=== PATIENT | female | born 1950 | race Caucasian/White ===

== ENCOUNTER 2020-04-28 12:42 | Outpatient (REF) | payer MEDICARE, SELFPAY ==
--- NOTE | 2020-04-28 12:47 | MM_ITS ---
EXAMINATION: BONE DENSITOMETRY CLINICAL INDICATION: Estrogen deficiency. COMPARISON: Previous BD dated 11/07/2016 and baseline BD dated 09/22/2014. TECHNIQUE: Using a [employer] DXA System (software version: 13.1) manufactured by [employer], dual-energy x-ray absorptiometry was performed of the lumbar spine and left hip. The images are of good technical quality. Summary results are attached. FINDINGS: AP SPINE L1-L2 (excluding L3 and L4): The data of L1-L4 has been changed to exclude the L3 and L4 vertebral bodies, because degenerative changes at these levels may cause overestimation of lumbar spine density. Current: BMD 1.070 g/cm2, Z-score 1.0, T-score -0.8, normal, 6.2% increase from previous, 11.0% increase from baseline (<5% change is not significant). Prior: BMD 1.008 g/cm2. Baseline: BMD 0.964 g/cm2. LEFT FEMUR, NECK: Current: BMD 0.753 g/cm2, Z-score -0.2, T-score -2.0, osteopenia. Prior: BMD 0.757 g/cm2. Baseline: BMD 0.797 g/cm2. LEFT FEMUR, TOTAL: Current: BMD 0.886 g/cm2, Z-score 0.6, T-score -1.0, normal, 2.7% decrease from previous, 4.8% decrease from baseline (<5% change is not significant). Prior: BMD 0.911 g/cm2. Baseline: BMD 0.931 g/cm2. IDENTIFIED RISK FACTORS: Menopause. HISTORY OF FRACTURE: None listed. MEDICATIONS: Calcium, vitamin D. IMPRESSION: 1. DIAGNOSIS: Osteopenia based on the lowest T-score value of -2.0 in the femoral neck applying World Health Organization criteria. 2. 10-YEAR FRACTURE RISK PREDICTION, FRAX: Major osteoporotic fracture (clinical spine, forearm, hip or shoulder) 12.6%. Hip fracture 2.7%. 3. Treatment Recommendations: NOF guidelines recommend consideration for treatment in postmenopausal women and men age 50 and older presenting with the following: -A hip or vertebral (clinical or morphometric) fracture. -T-score less than or equal to -2.5 at the femoral neck or spine after appropriate evaluation to exclude secondary causes. -Low bone mass at the hip or spine and a 10-year fracture probability by FRAX of greater than or equal to 3% for hip fracture or greater than or equal to 20% for major osteoporotic fracture based on the [place] adapted WHO algorithm. 4. Other Recommendations: All treatment decisions require clinical judgment and consideration of individual patient factors, including patient preferences, comorbidities, previous drug use, risk factors not captured in the FRAX model (e.g. frailty, falls, vitamin D deficiency, increased bone turnover, interval significant decline in bone density) and possible under or overestimation of fracture risk by FRAX. Additional medical evaluation for secondary cause of low bone mineral density may be appropriate. FUTURE SCAN RECOMMENDATION: People with diagnosed cases of osteoporosis or at high risk for fracture should have regular bone mineral density tests. For patients eligible for Medicare, routine testing is allowed once every 2 years. The testing frequency can be increased to one year for patients who have rapidly progressing disease, those who are receiving or discontinuing medical therapy to restore bone mass, or have additional risk factors.
== END 2020-04-28 12:43 | disposition home or self-care (01) ==
LOC: HO.MAMMO 12:42
PROVIDERS: PCP Nurse Practitioner Family; Visit Provider Nurse Practitioner Family
DX: E28.39 Other primary ovarian failure (principal)
CPT/HCPCS: 77080

== ENCOUNTER 2020-10-06 11:48 | Outpatient (REF) | payer MEDICARE, SELFPAY ==
--- NOTE | ~2020-10-06 | MM_ITS ---
EXAMINATION: MM SCREENING DIGITAL BREAST TOMOSYNTHESIS, BILATERAL CLINICAL INFORMATION: Screening. Asymptomatic. The lifetime risk of breast cancer based on the Tyrer-Cuzick Model is 2.9%. COMPARISON: Mammography: January 15, 2019 and studies dating back to April 22, 2012 TECHNIQUE: Digital breast tomosynthesis is performed in both the craniocaudal and mediolateral oblique views along with computer-aided detection (CAD). Synthesized 2D images are generated from the tomosynthesis. Additional right breast exaggerated craniocaudal view performed. FINDINGS: There are scattered areas of fibroglandular density (ACR BI-RADS breast composition Category b). There are no significant masses, abnormal calcifications, or other abnormalities. MM/MM tomosynthesis screening BI IMPRESSION: There are no significant changes from prior study. ASSESSMENT: BI-RADS 1: Negative RECOMMENDATION: Routine annual mammography screening. This patient's information was entered into a reminder system with a target due date for their next mammogram.
== END 2020-10-06 11:49 | disposition home or self-care (01) ==
LOC: HO.MAMMO 11:48
PROVIDERS: PCP Nurse Practitioner Family; Visit Provider Nurse Practitioner Family
DX: Z12.31 Encounter for screening mammogram for malignant neoplasm of breast (principal)
CPT/HCPCS: 77063; 77067

== ENCOUNTER 2021-10-12 11:13 | Outpatient (REF) | payer MEDICARE, SELFPAY ==
--- NOTE | ~2021-10-12 | MM_ITS ---
EXAMINATION: MM SCREENING DIGITAL BREAST TOMOSYNTHESIS, BILATERAL CLINICAL INFORMATION: Screening. Asymptomatic. The lifetime risk of breast cancer based on the Tyrer-Cuzick Model is 3%. COMPARISON: Mammography: 10/06/2020, 01/15/2019, 06/17/2018, 12/12/2017, 11/27/2017 TECHNIQUE: Digital breast tomosynthesis is performed in both the craniocaudal and mediolateral oblique views along with computer-aided detection (CAD). Synthesized 2D images are generated from the tomosynthesis. FINDINGS: There are scattered areas of fibroglandular density (ACR BI-RADS breast composition Category b). Parenchymal pattern is similar to prior studies and there is no interval mass or developing density or architectural abnormality. There are scattered benign punctate round and some rim calcifications again seen. The axilla and skin contours are unremarkable. No significant changes. MM/MM tomosynthesis screening BI IMPRESSION: No mammographic evidence of malignancy. ASSESSMENT: BI-RADS 2: Benign RECOMMENDATION: Routine annual mammography screening. This patient's information was entered into a reminder system with a target due date for their next mammogram.
== END 2021-10-12 11:14 | disposition home or self-care (01) ==
LOC: HO.MAMMO 11:13
PROVIDERS: Visit Provider Nurse Practitioner Family
DX: Z12.31 Encounter for screening mammogram for malignant neoplasm of breast (principal)
CPT/HCPCS: 77063; 77067

== ENCOUNTER → 2022-09-25 09:38 | Outpatient (REF) | payer MEDICARE, SELFPAY ==
--- NOTE | 2022-09-25 09:41 | CA_ITS ---
Transthoracic Echocardiogram Patient (Last, First, Middle): Ngoc Rocha B Gender: Female Date of : 1950 Age: 72 Procedure Date: 09/25/2022 Procedure Type: Transthoracic Echocardiogram Location: OP Height: 154.94 cm Weight: 56.7 kg BSA: 1.55 m2 Heart Rate: 65 bpm BP: 118 / 60 mmHg Outpatient Interviewing Clerk: BEE Referring MD: Maddy Lin NP [employer] Operator: Emil Quigley MD Symptoms: ABNORMAL EKG Study Quality: Adequate ECG Rhythm: Sinus Conclusions: - 1. [id number]-[id number] LV systolic dysfunction with LVEF of 40-45% with suggestion regional wall motion abnormality suggestive underlying coronary artery disease with impaired relaxation filling pattern 2. Severely dilated left atrium 3. Mild aortic regurgitation 4. Moderate mitral calcification with [id number]-moctblum mitral regurgitation 5. Normal RV systolic pressure 6. No gross pericardial effusion Findings Left Ventricle Normal left ventricular cavity size. There is normal left ventricular wall thickness. The left ventricular systolic function is mild to moderately decreased. The visually estimated ejection fraction is between 40-45%. Spectral Doppler is indicative of an impaired relaxation filling pattern. E/E prime ratio is between 8 and 15 consistent with indeterminate filling pressures. Peak GLS is -14.3%, which is reduced. Wall Motion Rest Echo Findings The inferior wall, the apical septum, and mid inferoseptal segments are hypokinetic. The apex segment is akinetic. All other scored wall segments showed normal motion. Right Ventricle Normal right ventricular cavity size and systolic function. Atria The left atrium is severely dilated. There is no evidence of interatrial shunt. The right atrium is likely dilated. Aortic Valve There is mild calcification of the aortic valve. There is mild aortic valve stenosis. There is no aortic valve regurgitation. Mitral Valve There is mild anterior and moderate posterior mitral leaflet thickening. There is moderate mitral annular calcification. There is mild to moderate mitral valve regurgitation. There is no mitral valve stenosis. Pulmonic Valve The pulmonic valve was not well visualized. Tricuspid Valve Likely normal tricuspid valve structure and function. There is trace tricuspid valve regurgitation. The right ventricular systolic pressure is normal. The right ventricular systolic pressure is 18 mmHg. Normal right atrial pressure. There is no evidence of pulmonary hypertension. Great Vessels All visible segments of the aorta are normal in size. The pulmonary artery was not well visualized. Venous The inferior vena cava is normal in size and collapses greater than 50% with inspiration. Pericardium/Pleural There is no evidence of pericardial effusion. Prior Study Comparison Changes noted compared to prior study dated: 10/31/2016. LV systolic function is marginally improved Measurements 2D Linear Measurements IVSd: 0.83 0.6-0.9/0.6-1.0 cm LVIDd: 5.12 3.9-5.3/4.2-5.9 cm LVIDd Index: 3.30 2.4-3.2/2.2-3.1 cm/m2 LVIDs: 3.64 2.0-3.6 cm LVPWd: 1.01 0.7-1.1 cm LA Diam: 3.90 2.7-3.8/3.0-4.0 cm LAIDs Index: 2.52 1.5-2.3 cm/m2 LV Mass: 210.90 67-162/88-224 g LV Mass Index: 136.07 43-95/49-115 g/m2 LVOT Diam: 2.10 3.0+(-)1.3 cm 2D Systolic Function EF 4C: 42.10 >55% EF 2C: 46.20 >55% EF BiP: 44.00 >55% Mitral Valve MV Pk E: 0.66 MV PK A: 0.84 MV Decel Time: 271.00 E/A: 0.80 E'Lateral: 5.22 E'Medial: 4.79 E/E' Med: 13.80 E/E' Lat: 12.60 PHT: 79.00 MVA PHT: 2.78 Decel [place]: 2.43 Aortic Valve AoV Pk Pedrito: 1.00 AoV Mn Pedrito: 0.64 AoV VTI: 0.23 AoV Pk Grad: 4.00 Aov Mn Grad: 2.00 JENNIFER Cont.VTI: 2.29 LVOT LVOT Pk Pedrito: 0.59 LVOT Mn Pedrito: 0.40 LVOT VTI: 0.15 LVOT Pk Grad: 1.00 LVOT Mn Grad: 1.00 LVOT Diam: 2.10 LVOT Area: 3.46 Diastolic Function MV Pk E: 0.66 MV Pk A: 0.84 E/A: 0.80 E'Medial: 4.79 E/E' Med: 13.80 E' Laterial: 5.22 E/E' Lat: 12.60 Right Ventricle TAPSE (mm): 21.10 TVS' Pedrito: 10.90 Tricuspid Valve TR Pk Pedrito: 1.95 TR Pk Grad: 15.00 RA Press: 3.00 RVSP: 18.00 Great Vessels Aorta Sinus of Valsalva: 3.20 2.0-3.5 cm Ao Asc: 3.00 2.1-3.4 cm Pulmonary Valve PV Pk Pedrito: 0.73 Peak PV Grad: 2.00 Updated in Other Vendor System with Status of Final Emil Quigley MD electronically signed on 09/25/2022 11:50:21 AM with status of Final
== END ==
LOC: HO.CARD 09:38
PROVIDERS: PCP Nurse Practitioner Family; Visit Provider Nurse Practitioner Family
DX: R94.31 Abnormal electrocardiogram [ECG] [EKG] (principal)
CPT/HCPCS: 93306; 93356

== ENCOUNTER 2022-11-07 12:12 | Outpatient (REF) | payer MEDICARE, SELFPAY ==
--- NOTE | ~2022-11-07 | MM_ITS ---
EXAMINATION: MM SCREENING DIGITAL BREAST TOMOSYNTHESIS, BILATERAL CLINICAL INFORMATION: Screening. Asymptomatic. The lifetime risk of breast cancer based on the Tyrer-Cuzick Model is 2%. COMPARISON: Mammography: 10/12/2021, 10/06/2020, 01/15/2019 TECHNIQUE: Digital breast tomosynthesis is performed in both the craniocaudal and mediolateral oblique views along with computer-aided detection (CAD). Synthesized 2D images are generated from the tomosynthesis. FINDINGS: There are scattered areas of fibroglandular density (ACR BI-RADS breast composition Category b). There are no significant masses, abnormal calcifications, or other abnormalities. Parenchymal pattern is similar to prior studies. There is no developing density or architectural abnormality. The axilla and skin contours are unremarkable. No significant changes. MM/MM tomosynthesis screening BI IMPRESSION: No mammographic evidence of malignancy. ASSESSMENT: BI-RADS 1: Negative RECOMMENDATION: Routine annual mammography screening. This patient's information was entered into a reminder system with a target due date for their next mammogram.
== END 2022-11-07 12:13 | disposition home or self-care (01) ==
LOC: HO.MAMMO 12:12
PROVIDERS: PCP Nurse Practitioner Family; Visit Provider Nurse Practitioner Family
DX: Z12.31 Encounter for screening mammogram for malignant neoplasm of breast (principal)
CPT/HCPCS: 77063; 77067

== ENCOUNTER → 2022-12-14 12:35 | Outpatient (BNVA) | payer MEDICARE, SELFPAY | PROVIDERS: PCP Nurse Practitioner Family; Referring Provider Nurse Practitioner Family; Visit Provider Internal Medicine Cardiovascular Disease | DX: I25.5 Ischemic cardiomyopathy (principal); I49.9 Cardiac arrhythmia, unspecified | CPT/HCPCS: 93005; 99202 ==

== ENCOUNTER 2023-01-05 08:04 | Outpatient (REF) | payer MEDICARE, SELFPAY ==
[2023-01-05 09:24] LABS: Hematocrit 40.1 % (37.0-47.0); Hemoglobin 13.9 g/dl (12.0-16.0); Mean Corpuscular HGB Conc 34.7 g/dl (31.0-35.0); Mean Corpuscular Hemoglobin 32.6 pg (27.0-33.0); Mean Corpuscular Volume 93.9 fL (80.0-98.0); Mean Platelet Volume 11.1 fL (9.4-12.3); Platelet Count 211 X10*3/uL (160-400); Red Blood Count 4.27 X10*6/uL (4.20-5.50); Red Cell Distribution Width 12.5 % (11.0-16.0); White Blood Count 6.1 X10*3/uL (4.8-10.8)
[2023-01-05 09:28] LABS: INTERNATIONAL NORM RATIO 0.9 (0.9-1.1); Prothrombin Time 10.6 SEC (10.0-13.1)
[2023-01-05 09:50] LABS: Anion Gap 14 (12-20); Blood Urea Nitrogen 17 mg/dL (9-16); Calcium 9.9 mg/dL (8.4-10.2); Chloride 105 mmol/L (96-108); Estimated Glomerular Filt Rate > 60; Glucose Random 108 mg/dL (60-115); Potassium 4.3 mmol/L (3.3-5.1); Sodium 140 mmol/L (135-145)
[2023-01-05 09:53] LABS: Carbon Dioxide 25 mmol/L (22-29)
== END 2023-01-05 08:05 | disposition home or self-care (01) ==
LOC: HO.LAB 08:04
PROVIDERS: PCP Nurse Practitioner Family; Visit Provider Internal Medicine Cardiovascular Disease
DX: I25.5 Ischemic cardiomyopathy (principal)
CPT/HCPCS: 36415; 80048; 85027; 85610

== ENCOUNTER → 2023-01-25 23:59 | Outpatient (BNV) | payer MEDICARE, SELFPAY | PROVIDERS: PCP Nurse Practitioner Family; Visit Provider Internal Medicine Cardiovascular Disease | DX: I42.9 Cardiomyopathy, unspecified (principal); I50.20 Unspecified systolic (congestive) heart failure | CPT/HCPCS: 93458; 99152 ==

== ENCOUNTER 2023-02-08 14:35 | Outpatient (AMB) | payer MEDICARE, SELFPAY ==
--- NOTE | 2023-02-08 14:57 | MHC.OFFVIS ---
Intake Vital Signs 02/08/23 14:58 Height 5 ft 1 in Weight 125 lb 10.616 oz BMI 23.7 BP 130/70 Blood Pressure Location Lt brachial Position Sitting Pulse 66 Pulse Source Pulse Oximeter Intake Visit Reasons: 2 wk s/p cath Intake Note: 2 week/ s/p cath Allergies No Known Allergies Allergy (Verified 02/08/23 15:01) Medication List - Last Reconciled 02/08/23 by Sara Valencia NP-C alprazolam 0 mg PO aspirin (Ecotrin Low Strength) 81 mg PO DAILY atorvastatin 40 mg PO DAILY lisinopril 10 mg PO DAILY mecobalamin (vitamin B12) 1,000 mcg PO DAILY metoprolol tartrate 50 mg PO BID sertraline 25 mg PO DAILY HPI 2 wk s/p cath HPI Details Ngoc is a 72-year-old female with past medical history cardiomyopathy and ventricular arrhythmias who had been under our care however not seen between 01/2017 and 12/08/2022 for unclear reason. More recently she had an echocardiogram which still shows cardiomyopathy which led to cardiac catheterization showing normal coronary arteries. Today she reports she has been feeling well with no chest discomfort at rest or with activity, no shortness of breath. She does get episodes were is very petite. No presyncope, syncope, falls. No PND, orthopnea or edema. She reports compliance with her medications. She has a letter of approval for the cardiac MRI which was previously ordered. [facility] [place] Medical History (Updated 02/08/23 @ 17:34 by Sara Valencia, IVAN-C) Cardiomyopathy Surgical History (Updated 02/08/23 @ 17:34 by Sara Vlaencia NP-C) S/P cardiac catheterization Social History Alcohol intake: current Alcohol intake frequency: holidays/special occasions only Patient Tobacco Use Status: Former Tobacco user Quit Date: 30 years Review of Systems Const All systems reviewed & are unremarkable except as noted in HPI and below ENT Reports dizziness Card Denies chest pain, Denies chest pain at rest, Denies chest pain with activity, Denies rapid heart rate, Denies pedal edema, Denies edema, Denies leg edema, Denies lightheadedness, Denies palpitations, Denies dyspnea, Denies dyspnea on exertion and Denies orthopnea Resp Denies cough, Denies dyspnea and Denies dyspnea on exertion GI Denies hematochezia and Denies change in stool character Musc Denies abnormal gait, Reports limited range of motion, Reports muscle cramps, Denies muscle weakness, Denies numbness, Denies radiating pain into limb, Denies stiffness and Denies tingling Neuro Denies abnormal gait, Reports dizziness, Denies numbness and Denies tingling Endo Denies palpitations Physical Exam Vital Signs: Last Vital Signs Pulse 66 02/08/23 14:58 BP 130/70 02/08/23 14:58 BMI result Body Mass Index 23.7 Const General: cooperative, healthy appearing, comfortable and no acute distress Orientation/consciousness: patient oriented x3 Neck Neck: Yes normal visual inspection Resp Effort & Inspection: normal respiratory effort Auscultation: clear to auscultation bilaterally, no crackles, no rales, no rhonchi and no wheezes Cardio Jugular venous distension: no JVD Rate: regular rate Rhythm: regular rhythm Heart sounds: S1 normal heart sound present, S2 normal heart sound present, no murmurs and no rubs Neuro General: patient oriented x3 Extrem Other: Right radial catheterization site well healed, easily palpable radial pulse and hand assessment normal General: Yes normal to inspection Psych Appearance: grossly normal Mental Status: mental status grossly normal Speech and movement: Normal speech and movement present Assessment & Plan Assessment & Plan (1) Nonischemic cardiomyopathy: Code(s): I42.8 - Other cardiomyopathies Plan: History of cardiomyopathy. Previously seen in 2017 for LV systolic dysfunction and ventricular arrhythmias. There was concern at that time for infiltrative cardiomyopathy, sarcoidosis. She had a cardiac MRI which was borderline abnormal and started on metoprolol. According to notes her ventricular arrhythmias subsided and LV systolic function had normalized. She then was not seen in our office again until 12/2022. She had had an echo 09/25/2022 showing EF 40-45%, impaired relaxation, inferior wall, apical septum and mid inferior septal segments are hypokinetic, apex akinetic. She underwent cardiac catheterization on 01/25/2023 showing normal coronary arteries. She has nonischemic cardiomyopathy. A cardiac MRI has previously been ordered and she has a letter of approval from her insurance company. She will be calling [facility] to schedule this procedure. All the above reviewed with her and she states understanding. She will continue on metoprolol at 50 mg b.i.d., lisinopril. Blood pressure well controlled currently. Cardiology follow-up, 3 months, sooner if needed (2) S/P cardiac catheterization: Comment: 01/25/2023, left main, left circumflex, RCA all normal, lad minimal luminal irregularities Code(s): Z98.890 - Other specified postprocedural states (3) Ventricular arrhythmia: Code(s): I49.9 - Cardiac arrhythmia, unspecified Coding Level of Care Code Est Pt Level 4 (86786) Diagnoses Nonischemic cardiomyopathy I42.8 S/P cardiac catheterization Z98.890 Ventricular arrhythmia I49.9 Time Spent (min) 28 Comment Chart review, documentation, interview, assessment
[2023-02-08 14:58] VITALS: BP 130/70; PULSE 66; BMI 23.7
== END 2023-02-08 15:44 | disposition home or self-care (01) ==
PROVIDERS: PCP Nurse Practitioner Family; Referring Provider Nurse Practitioner Family; Visit Provider Nurse Practitioner Family
DX: I42.8 Other cardiomyopathies (principal); Z98.890 Other specified postprocedural states; I49.9 Cardiac arrhythmia, unspecified
CPT/HCPCS: 99214

== ENCOUNTER → 2023-02-08 14:35 | Outpatient (BNVA) | payer MEDICARE, SELFPAY | PROVIDERS: PCP Nurse Practitioner Family; Referring Provider Nurse Practitioner Family; Visit Provider Nurse Practitioner Family | DX: I42.8 Other cardiomyopathies (principal); I49.9 Cardiac arrhythmia, unspecified; Z98.890 Other specified postprocedural states | CPT/HCPCS: 99212 ==

== ENCOUNTER → 2023-04-04 10:42 | Outpatient (REF) | payer MEDICARE, SELFPAY ==
--- NOTE | 2023-04-04 10:49 | HM_ITS ---
Conclusion: 1. Patient was monitored for total period of 2 days 2. Baseline was normal sinus with average heart of 69 beats per minute 3. No significant pauses noted 4. Occasional PACs and PVCs noted 5. No patient reported events MTDD
== END ==
LOC: HO.CARD 10:42
PROVIDERS: PCP Nurse Practitioner Family; Visit Provider Nurse Practitioner Family
DX: I49.3 Ventricular premature depolarization (principal)
CPT/HCPCS: 93225

== ENCOUNTER → 2023-04-04 10:49 | Outpatient (BNV) | payer MEDICARE, SELFPAY | PROVIDERS: PCP Nurse Practitioner Family; Visit Provider Internal Medicine Cardiovascular Disease | DX: I49.1 Atrial premature depolarization (principal) | CPT/HCPCS: 93227 ==

== ENCOUNTER 2023-06-27 08:38 | Outpatient (REF) | payer MEDICARE, SELFPAY ==
[2023-06-27 09:43] LABS: Anion Gap 11 (12-20); Blood Urea Nitrogen 13 mg/dL (9-16); Calcium 9.6 mg/dL (8.4-10.2); Carbon Dioxide 28 mmol/L (22-29); Chloride 107 mmol/L (96-108); Estimated Glomerular Filt Rate > 60; Glucose Random 111 mg/dL (60-115); Potassium 4.2 mmol/L (3.3-5.1); Sodium 142 mmol/L (135-145)
== END 2023-06-27 08:39 | disposition home or self-care (01) ==
LOC: HO.LAB 08:38
PROVIDERS: PCP Nurse Practitioner Family; Visit Provider Internal Medicine Cardiovascular Disease
DX: I42.8 Other cardiomyopathies (principal); I25.5 Ischemic cardiomyopathy
CPT/HCPCS: 36415; 80048

== ENCOUNTER 2023-07-23 14:25 | Outpatient (AMB) | payer MEDICARE, SELFPAY ==
--- NOTE | 2023-07-23 14:33 | A.OFFVIS_ITS ---
Intake Vital Signs 07/23/23 14:34 Height 5 ft 1 in Weight 134 lb 7.712 oz BMI 25.4 BP 120/70 Blood Pressure Location Lt brachial Position Sitting Pulse 72 Intake Visit Reasons: Follow up after cardiac MRI Intake Note: Follow-up post cardiac MRI feeling good Allergies No Known Allergies Allergy (Verified 02/08/23 15:01) Medication List - Last Reconciled 07/23/23 by Emil Quigley MD alprazolam 0 mg PO aspirin (Ecotrin Low Strength) 81 mg PO DAILY atorvastatin 40 mg PO DAILY lisinopril 10 mg PO DAILY mecobalamin (vitamin B12) 1,000 mcg PO DAILY metoprolol tartrate 50 mg PO BID sertraline 25 mg PO DAILY HPI HPI Comments History of Present Illness Details Ngoc comes for follow-up. She recently underwent cardiac MRI which shows LVEF of 46% with dilated left atrium. There were no infiltrative or infarcted segment seen on the MRI. There was mild mitral regurgitation noted. There is also mild aortic regurgitation noted. Overall patient is doing well. She has no limitations to activity level. She however does not exercise on a regular basis. She denies any prolonged palpitations irregular heartbeat. Denies any heart failure symptoms. Denies any chest pains. [facility] Medical History (Updated 07/23/23 @ 14:56 by Emil Quigley MD) Cardiomyopathy Surgical History (Updated 07/23/23 @ 14:56 by Emil Quigley MD) S/P cardiac catheterization Social History Alcohol intake: current Alcohol intake frequency: holidays/special occasions only Patient Tobacco Use Status: Former Tobacco user Quit Date: 30 years Review of Systems Const Denies chills, Denies fatigue, Denies fever(s), Denies frequent falls, Denies weakness, Denies weight gain and Denies weight loss ENT Denies dizziness Card Denies chest pain, Denies leg edema, Denies lightheadedness, Denies palpitations, Denies dyspnea, Denies dyspnea on exertion, Denies orthopnea and Denies other (loss of consciousness) Resp Denies cough, Denies dyspnea and Denies dyspnea on exertion GI Denies hematochezia and Denies change in stool character Musc Denies abnormal gait, Denies muscle weakness, Denies numbness, Denies radiating pain into limb and Denies tingling Neuro Denies abnormal gait, Denies dizziness, Denies frequent falls, Denies numbness, Denies tingling and Denies weakness Endo Denies fatigue and Denies palpitations Physical Exam Vital Signs: Last Vital Signs Pulse 72 07/23/23 14:34 BP 120/70 07/23/23 14:34 BMI result Body Mass Index 25.4 Const General: cooperative, healthy appearing, comfortable and no acute distress Orientation/consciousness: patient oriented x3 Neck Neck: Yes normal visual inspection Resp Effort & Inspection: normal respiratory effort Auscultation: clear to auscultation bilaterally, no crackles, no rales, no rhonchi and no wheezes Cardio Jugular venous distension: no JVD Rate: regular rate Rhythm: regular rhythm Heart sounds: S1 normal heart sound present, S2 normal heart sound present, no murmurs and no rubs Neuro General: patient oriented x3 Extrem Other: Right radial catheterization site well healed, easily palpable radial pulse and hand assessment normal General: Yes normal to inspection Psych Appearance: grossly normal Mental Status: mental status grossly normal Speech and movement: Normal speech and movement present Assessment & Plan Assessment & Plan (1) Nonischemic cardiomyopathy: Code(s): I42.8 - Other cardiomyopathies Plan: Nonischemic cardiomyopathy in this elderly woman without any signs or symptoms of congestive heart failure. She is doing well currently. Encouraged to increase activity level. Advised to continue current neurohormonal modulation with lisinopril and metoprolol. We discussed about signs and symptoms of heart failure and advised to call me with any new symptoms. Importance of medical therapy was discussed. She understands agrees. Will follow up in the clinic in 1 year's time after an echocardiogram. Thank you for allowing me to partake in the care Coding Level of Care Code Est Pt Level 4 (92016) Diagnoses Nonischemic cardiomyopathy I42.8
[2023-07-23 14:34] VITALS: BP 120/70; PULSE 72; BMI 25.4
== END 2023-07-23 14:57 | disposition home or self-care (01) ==
PROVIDERS: PCP Nurse Practitioner Family; Visit Provider Internal Medicine Cardiovascular Disease
DX: I42.8 Other cardiomyopathies (principal)
CPT/HCPCS: 99214

== ENCOUNTER → 2023-07-23 14:25 | Outpatient (BNVA) | payer MEDICARE, SELFPAY | PROVIDERS: PCP Nurse Practitioner Family; Visit Provider Internal Medicine Cardiovascular Disease | DX: I42.8 Other cardiomyopathies (principal) | CPT/HCPCS: 99212 ==

== ENCOUNTER 2023-09-04 08:45 | Outpatient (REF) | payer MEDICARE, SELFPAY ==
[2023-09-04 10:53] LABS: Anion Gap 13 (12-20); Blood Urea Nitrogen 14 mg/dL (9-16); Carbon Dioxide 25 mmol/L (22-29); Chloride 104 mmol/L (96-108); Estimated Glomerular Filt Rate > 60; Glucose Random 121 mg/dL (60-115); Potassium 4.4 mmol/L (3.3-5.1); Sodium 138 mmol/L (135-145)
== END 2023-09-04 08:46 | disposition home or self-care (01) ==
LOC: HO.LAB 08:45
PROVIDERS: PCP Nurse Practitioner Family; Visit Provider Nurse Practitioner Family
DX: I10 Essential (primary) hypertension (principal)
CPT/HCPCS: 36415; 80048

== ENCOUNTER 2023-09-24 08:19 | Outpatient (REF) | payer MEDICARE, SELFPAY ==
--- NOTE | ~2023-09-24 | CT_ITS ---
EXAMINATION: CT ABDOMEN AND PELVIS WITH CONTRAST CLINICAL INFORMATION: Right lower quadrant pain COMPARISON: None available. TECHNIQUE: Multidetector volumetric images were obtained from the superior aspect of the liver through the pubic symphysis following administration 85 mL of Omnipaque 350 intravenous contrast. Sagittal and coronal reformatted images were obtained on the technologist's workstation. Oral contrast: Yes This CT examination was performed using dose optimization techniques as appropriate, variously including the following: *Automated exposure control *Adjustment of mA and/or kV according to patient size (this includes techniques or standardized protocols for targeted exams where dose is matched to indication/reason for exam; i.e. extremities or head) *Use of iterative reconstruction technique DLP: 287 mGy-cm FINDINGS: Visualized lung bases demonstrate mild dependent atelectasis. The liver is normal in size. The gallbladder is normal in appearance. The pancreas, spleen and adrenal glands are unremarkable. Small anterior splenule. Symmetrically enhancing kidneys. There is no hydronephrosis of either kidney. Normal distention of the stomach. Normal caliber loops of small and large bowel. Mild colonic diverticulosis without CT evidence to suggest active diverticulitis. Normal appendix. Normal caliber abdominal aorta demonstrating moderate atherosclerotic disease. No retroperitoneal lymphadenopathy. Small fat-containing umbilical hernia. The bladder is normal in appearance. Unremarkable CT appearance of the uterus. No gross free pelvic fluid. No inguinal lymphadenopathy. Diffuse osteopenia. Mild to moderate diffuse degenerative changes of the spine. CT/CT abdomen pelvis w IV con IMPRESSION: Mild colonic diverticulosis without CT evidence to suggest active diverticulitis. Fleischner guidelines were followed.
[2023-09-24] MEDS: iohexoL 350 MG/ML 100 ML INFUS..BTL 85 ML IV (11:00)
[2023-09-24] MEDS: Barium Sulfate Oral (Vanilla) 450 ML ORAL.SUSP PO ×2 (11:01)
== END 2023-09-24 08:20 | disposition home or self-care (01) ==
LOC: HO.CT 08:19
PROVIDERS: PCP Nurse Practitioner Family; Visit Provider Nurse Practitioner Family
DX: R10.31 Right lower quadrant pain (principal); G89.29 Other chronic pain
CPT/HCPCS: 74177; Q9967

== ENCOUNTER 2023-12-28 10:11 | Outpatient (REF) | payer MEDICARE, SELFPAY | END 2023-12-28 10:12 | disposition home or self-care (01) | LOC: HO.MAMMO 10:11 | PROVIDERS: PCP Nurse Practitioner Family; Visit Provider Nurse Practitioner Family | DX: Z12.31 Encounter for screening mammogram for malignant neoplasm of breast (principal) | CPT/HCPCS: 77063; 77067 ==

== ENCOUNTER → 2023-12-28 10:30 | Outpatient (BNV) | payer MEDICARE, SELFPAY | PROVIDERS: PCP Nurse Practitioner Family; Visit Provider Radiology Diagnostic Radiology | DX: Z12.31 Encounter for screening mammogram for malignant neoplasm of breast (principal) | CPT/HCPCS: 77063; 77067 ==

== ENCOUNTER 2024-07-22 10:40 | Outpatient (AMB) | payer MEDICARE, SELFPAY ==
[2024-07-22 10:55] VITALS: BP 120/80; PULSE 71; BMI 25.0
--- NOTE | 2024-07-22 10:55 | A.OFFVIS_ITS ---
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 She has been doing very well over the last year. Denies any symptoms exertional chest pain or shortness of breath. Recently traveled to [facility] and said she walked a lot and had no issues with that. Denies any prolonged palpitation irregular heartbeat. No lightheadedness, syncope. No orthopnea, PND, leg edema. Takes all her medications. [facility] Medical History (Updated 07/23/23 @ 14:56 by Emil Quigley MD) Cardiomyopathy Surgical History (Updated 07/23/23 @ 14:56 by Emil Quigley MD) S/P cardiac catheterization Social History Alcohol intake: current Alcohol intake frequency: holidays/special occasions only Patient Tobacco Use Status: Former Tobacco user Review of Systems Const Denies chills, Denies fatigue, Denies fever(s), Denies frequent falls, Denies weakness, Denies weight gain and Denies weight loss ENT Denies dizziness Card Denies chest pain, Denies leg edema, Denies lightheadedness, Denies palpitations, Denies dyspnea, Denies dyspnea on exertion, Denies orthopnea and Denies other (loss of consciousness) Resp Denies cough, Denies dyspnea and Denies dyspnea on exertion GI Denies hematochezia and Denies change in stool character Musc Denies abnormal gait, Denies muscle weakness, Denies numbness, Denies radiating pain into limb and Denies tingling Neuro Denies abnormal gait, Denies dizziness, Denies frequent falls, Denies numbness, Denies tingling and Denies weakness Endo Denies fatigue and Denies palpitations Physical Exam Vital Signs: Last Vital Signs Pulse 71 07/22/24 10:55 BP 120/80 07/22/24 10:55 BMI result Body Mass Index 25.0 Const General: cooperative, healthy appearing, comfortable and no acute distress Orientation/consciousness: patient oriented x3 Neck Neck: Yes normal visual inspection Resp Effort & Inspection: normal respiratory effort Auscultation: clear to auscultation bilaterally, no crackles, no rales, no rhonchi and no wheezes Cardio Jugular venous distension: no JVD Rate: regular rate Rhythm: regular rhythm Heart sounds: S1 normal heart sound present, S2 normal heart sound present, no murmurs and no rubs Neuro General: patient oriented x3 Extrem Other: Right radial catheterization site well healed, easily palpable radial pulse and hand assessment normal General: Yes normal to inspection Psych Appearance: grossly normal Mental Status: mental status grossly normal Speech and movement: Normal speech and movement present Office Procedures EKG Details: EKG shows normal sinus rhythm with nonspecific anterior and inferior T-wave changes 30025-Xrzmvmchortklegrr, Complete Assessment & Plan Assessment & Plan (1) Nonischemic cardiomyopathy: Code(s): I42.8 - Other cardiomyopathies Category: Medical Plan: Nonischemic cardiomyopathy without any new symptoms. No signs or symptoms of heart failure. They were discussed. Continue aggressive neurohormonal modulation with metoprolol lisinopril. Advised to follow-up echocardiogram near future. If her LV systolic function remains reduce will switch her neurohormonal modulation from lisinopril to Entresto therapy. Otherwise continue current therapy. Low-salt diet was discussed advised to call me with any new symptoms. (2) Ventricular arrhythmia: Code(s): I49.9 - Cardiac arrhythmia, unspecified Category: Medical Plan: Frequent PVCs in the past which had improved with metoprolol therapy. Advised to continue metoprolol therapy. Advised to avoid stimulants. Stress mitigation strategies was discussed. Will follow up with Holter monitor in near future. No change in therapy. No antiarrhythmic drug therapy required. Will follow up in the clinic in 1 year's time, sooner p.r.n.. Thank you for allowing me to partake in her care Orders: Orders CA echo transthoracic complete Today I42.8 - Other cardiomyopathies ECG 3 day holter monitor Today I49.9 - Cardiac arrhythmia, unspecified Coding Level of Care Code Est Pt Level 4 (88296) Complex EM visit Add On G2211 Diagnoses Nonischemic cardiomyopathy I42.8 Ventricular arrhythmia I49.9 CPT Codes EKG - CPT: 30766-Cfvxeacmozpckycsw, Complete ([id number])
== END 2024-07-22 11:17 | disposition home or self-care (01) ==
PROVIDERS: PCP Nurse Practitioner Family; Visit Provider Internal Medicine Cardiovascular Disease
DX: I42.8 Other cardiomyopathies (principal); I49.9 Cardiac arrhythmia, unspecified
CPT/HCPCS: 93010; 99214; G2211

== ENCOUNTER → 2024-07-22 10:40 | Outpatient (BNVA) | payer MEDICARE, SELFPAY | PROVIDERS: PCP Nurse Practitioner Family; Visit Provider Internal Medicine Cardiovascular Disease | DX: I42.8 Other cardiomyopathies (principal); I49.9 Cardiac arrhythmia, unspecified; R94.31 Abnormal electrocardiogram [ECG] [EKG] | CPT/HCPCS: 93005; 99212 ==

== ENCOUNTER → 2024-08-05 10:43 | Outpatient (REF) | payer MEDICARE, SELFPAY ==
--- NOTE | 2024-08-05 10:47 | HM_ITS ---
* Total monitoring time 3 days. * Underlying rhythm is sinus with an average rate of 77/Min. * Rare supraventricular ectopy. * Ventricular ectopy noted with a burden of 1.8%. * No significant pauses or high-grade AV blocks. * No patient markers or diary events. MTDD
--- NOTE | 2024-08-05 10:47 | CA_ITS ---
Transthoracic Echocardiogram Patient (Last, First, Middle): Ngoc Rocha B Gender: Female Date of : 1950 Age: 74 Procedure Date: 08/05/2024 Procedure Type: Transthoracic Echocardiogram Location: OP Height: 154.94 cm Weight: 58.97 kg BSA: 1.57 m2 Heart Rate: bpm BP: 116 / 56 mmHg Cone Operator: Referring MD: Emil Quigley MD Symptoms: I42.8 - Other cardiomyopathies Study Quality: Fair ECG Rhythm: Sinus Conclusions: - The left ventricular systolic function is mildly decreased. The calculated ejection fraction is 43% by biplane method. - The mid inferior segment is akinetic. The basal inferolateral segment is hypokinetic. - The left atrium is severely dilated. - There is moderate posterior mitral annular calcification. There is mild posterior mitral leaflet prolapse. There is moderate mitral valve regurgitation. Findings Left Ventricle Normal left ventricular cavity size. There is normal left ventricular wall thickness. The left ventricular systolic function is mildly decreased. The calculated ejection fraction is 43% by biplane method. There is evidence of regional wall motion abnormalities. Diastolic function is normal for age. Wall Motion Rest Echo Findings The basal inferolateral segment is hypokinetic. The mid inferior segment is akinetic. Right Ventricle Normal right ventricular cavity size and systolic function. Atria The left atrium is severely dilated. The right atrium is normal in size. Aortic Valve There is a normal trileaflet aortic valve. There is no aortic valve stenosis. There is mild aortic valve regurgitation. Mitral Valve There is moderate posterior mitral annular calcification. There is mild posterior mitral leaflet prolapse. There is moderate mitral valve regurgitation. There is no mitral valve stenosis. Pulmonic Valve There is mild pulmonic valve regurgitation. Tricuspid Valve There is mild tricuspid valve regurgitation. There is no evidence of pulmonary hypertension. Great Vessels The asc aorta is normal in size. Venous The inferior vena cava is normal in size and collapses greater than 50% with inspiration. Pericardium/Pleural There is no evidence of pericardial effusion. Prior Study Comparison No significant change compared to prior study dated: 09/25/2022. Measurements 2D Linear Measurements IVSd: 1.04 0.6-0.9/0.6-1.0 cm LVIDd: 5.39 3.9-5.3/4.2-5.9 cm LVIDd Index: 3.43 2.4-3.2/2.2-3.1 cm/m2 LVIDs: 4.13 2.0-3.6 cm LVPWd: 1.01 0.7-1.1 cm Ao Root: 3.20 2.1-3.5 cm LA Diam: 4.50 2.7-3.8/3.0-4.0 cm LAIDs Index: 2.87 1.5-2.3 cm/m2 LV Mass: 265.45 67-162/88-224 g LV Mass Index: 169.08 43-95/49-115 g/m2 LVOT Diam: 2.40 3.0+(-)1.3 cm 2D Systolic Function EF 4C: 41.80 >55% EF 2C: 48.90 >55% EF BiP: 42.90 >55% Mitral Valve MV Pk E: 1.00 MV PK A: 0.86 MV Decel Time: 174.00 E/A: 1.20 E'Lateral: 6.31 E'Medial: 5.66 E/E' Med: 17.60 E/E' Lat: 15.80 PHT: 51.00 MVA PHT: 4.31 Decel Bladen: 5.75 MR Vol - PW Dopp: 47.67 MR VTI: 2.27 MR ERO: 21.00 MR Alias Pedrito: 0.32 MR RAD: 0.80 Aortic Valve AoV Pk Pedrito: 0.97 AoV Mn Pedrito: 0.66 AoV VTI: 0.27 AoV Pk Grad: 4.00 Aov Mn Grad: 2.00 LVOT LVOT Diam: 2.40 LVOT Area: 4.52 Diastolic Function MV Pk E: 1.00 MV Pk A: 0.86 E/A: 1.20 E'Medial: 5.66 E/E' Med: 17.60 E' Laterial: 6.31 E/E' Lat: 15.80 Right Ventricle TAPSE (mm): 24.00 TVS' Pedrito: 10.00 Tricuspid Valve TR Pk Pedrito: 1.62 TR Pk Grad: 10.00 RA Press: 3.00 RVSP: 13.00 Great Vessels Aorta Ao Root-2D: 3.20 2.0-3.7 cm Ao Asc: 3.00 2.1-3.4 cm Pulmonary Valve PV Pk Pedrito: 0.73 Peak PV Grad: 2.00 Updated in Other Vendor System with Status of Final Marty Newman MD electronically signed on 08/07/2024 11:19:54 AM with status of Final
--- OUTSIDE RECORDS SUMMARY | 2024-08-05 11:50 | XMS_ITS | Patient Health Record ---
Author Organization Total [facility] Address [address] [place] [address] Care Team Providers Care Data Collection Interviewer Name Role Phone KACY KHAN N.P. Primary Care Provider Unavaila ble Reason For Referral No Information Medications Medication SIG (Take, Route, Frequency, Duration) Notes Start Date End Date Status Atorvastatin Calcium 40 MG 1 tablet Oral ly Once a day Active Lisinopril 20 MG 1 tablet Orally Once a day Active Calcium 500 MG 1 tablet with meals Orally Twice a day Active Vitamin D 1000 UNIT 1 tablet Orally Once a day Active Vagifem 10 MCG 1 tablet Vaginal TWI CE WEEKLY for 90 days 11/16/2014 Active Plan Of Treatment Pending Test Test Name Order Date Vitamin D, 25-Hydroxy 11/20/2014 MAMMOGRAM, SCREENING 11/16/2014 Insurance Providers Payer Name Payer Address Payer Phone Subscriber Number Group Number Insured Name Patient Relationship to Insured Coverage Start Date Coverage End Date [employer]AGE [facility] [address] [place] [address] [id number] ESTEPHANIE KEANE Self - patient is the insured Medical (General) History Medical History History ICD Code HYPERTENSION HYPERLIPIDEMIA Hospitalization History Reason Date(Month/Year) CHILD
== END ==
LOC: HO.CARD 10:43
PROVIDERS: Visit Provider Internal Medicine Cardiovascular Disease
DX: I49.9 Cardiac arrhythmia, unspecified (principal); I42.8 Other cardiomyopathies; I47.10 Supraventricular tachycardia, unspecified
CPT/HCPCS: 93242; 93306

== ENCOUNTER 2024-09-01 07:49 | Outpatient (REF) | payer MEDICARE, SELFPAY ==
[2024-09-01 10:27] LABS: MANUAL DIFF FLAG NO
[2024-09-01 10:47] LABS: Basophils Absolute Auto 0.1 X10*3/uL (0.0-0.2); Eosinophils Absolute Auto 0.1 X10*3/uL (0.0-0.4); Eosinophils Percent Auto 1.9 % (0-4); Hemoglobin 13.7 g/dl (12.0-16.0); Imm Gran Abs Auto 0.03 X10*3/uL (0.00-0.03); Imm Gran Pct Auto 0.4 % (0.0-0.4); Lymphocytes Absolute Auto 2.4 X10*3/uL (1.2-4.9); Lymphocytes Percent Auto 34.3 % (20-40); Mean Corpuscular HGB Conc 33.4 g/dl (31.0-35.0); Mean Corpuscular Hemoglobin 32.2 pg (27.0-33.0); Mean Corpuscular Volume 96.5 fL (80.0-98.0); Monocytes Absolute Auto 0.5 X10*3/uL (0.1-1.2); Monocytes Percent Auto 7.5 % (2-11); Neutrophils Absolute Auto 3.9 x10*3/uL (2.0-8.3); Neutrophils Percent Auto 54.9 % (45-73); Platelet Count 187 X10*3/uL (160-400); Red Blood Count 4.25 X10*6/uL (4.20-5.50); Red Cell Distribution Width 12.7 % (11.0-16.0)
[2024-09-01 11:06] LABS: Estimated Average Glucose 108 mg/dL; Hemoglobin A1C 125.8946 umol/L; Hemoglobin A1c % 5.4 % (<6.0); Total Hemoglobin (HGBA1C) 3547.5639 umol/L
[2024-09-01 11:31] LABS: Alanine Aminotransferase 20 U/L (0-31); Albumin Level 4.2 g/dL (3.5-5.0); Alkaline Phosphatase 57 U/L (39-117); Anion Gap 14 (12-20); Aspartate Amino Transferase 21 U/L (5-31); Bilirubin Total 0.7 mg/dL (0.0-1.0); Blood Urea Nitrogen 12 mg/dL (9-16); Calcium 9.6 mg/dL (8.4-10.2); Carbon Dioxide 26 mmol/L (22-29); Chloride 106 mmol/L (96-108); Cholesterol 216 mg/dL (<200); Estimated Glomerular Filt Rate > 60; Glucose Fasting 120 mg/dL (60-99); HDL Cholesterol 57 mg/dL (>40); LDL Cholesterol Calculated 118 mg/dL (<100); Potassium 4.6 mmol/L (3.3-5.1); Sodium 141 mmol/L (135-145); Total Protein 7.4 g/dL (6.5-8.0); Triglycerides 207 mg/dL (<150); Vitamin D 25-OH Total 33.7 ng/mL (>30)
== END 2024-09-01 07:50 | disposition home or self-care (01) ==
LOC: HO.HMGCLDS 07:49
PROVIDERS: PCP Internal Medicine; Visit Provider Internal Medicine
DX: I42.8 Other cardiomyopathies (principal); E78.5 Hyperlipidemia, unspecified; R73.9 Hyperglycemia, unspecified; E55.9 Vitamin D deficiency, unspecified; Z78.0 Asymptomatic menopausal state; Z79.899 Other long term (current) drug therapy
CPT/HCPCS: 36415; 80053; 80061; 82306; 83036; 85025; 96127; 99202

== ENCOUNTER 2024-09-01 07:49 | Outpatient (AMB) | payer MEDICARE, SELFPAY ==
[2024-09-01 08:00] VITALS: BP 134/76; PULSE 73; RESP 18; TEMP 36.7; O2SAT 97; BMI 25.7
--- NOTE | 2024-09-01 08:00 | A.OFFPC_ITS ---
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 Allergies No Known Allergies Allergy (Verified 09/01/24 08:04) Medication List - Last Reconciled 09/01/24 by Kasandra Hylton MD aspirin (Ecotrin Low Strength) 81 mg PO DAILY atorvastatin 40 mg PO DAILY biotin 2,500 mcg PO DAILY cholecalciferol (vitamin D3) 25 mcg PO DAILY lisinopril 10 mg PO DAILY mecobalamin (vitamin B12) 1,000 mcg PO DAILY metoprolol tartrate 50 mg PO BID sertraline 25 mg PO DAILY Tobacco use date assessed: 09/01/24 Fall risk assessment: No Falls in past year Last assessed Fall Risk: 09/01/24 Dental Screening Dental Screen Date: 09/01/24 Did you have a dental visit in the last 12 months?: Yes Did you have a dental problem in the last 6 months where you did not have access to dental care?: No Was dental information given to patient?: Patient has dentist HPI CONSTRUCTION ENGINEERING MANAGER HPI Details Patient presents for new patient visit. Past medical history includes nonischemic cardiomyopathy treated with lisinopril metoprolol follows up with [facility] Medical History Cardiomyopathy Surgical History S/P cardiac catheterization Family History (Updated 09/01/24 @ 08:10 by Melissa Solorio Johanna) Father No problems noted. Mother Hypertension Brother Diabetes Social History (Updated 09/01/24 @ 08:22 by Kasandra Hylton MD) Household Members Other:: , 2 adult children, daughter in [place], 3 grandchildren, Housing: House Alcohol intake: current Alcohol intake frequency: holidays/special occasions only Patient Tobacco Use Status: Former Tobacco user e-Cigarette/Vaping Use: Never Used service: No Current occupational status: retired Cognitive needs: No Hearing needs: No Vision needs: Yes Questionnaire PHQ-9 Over the last 2 weeks, how often have you been bothered by any of the following problems? 1. Little interest or pleasure in doing things: not at all 2. Feeling down, depressed, or hopeless: not at all 3. Trouble falling or staying asleep, or sleeping too much: not at all 4. Feeling tired or having little energy: not at all 5. Poor appetite or overeating: not at all 6. Feeling bad about yourself - or that you are a failure or have let yourself or your family down: not at all 7. Trouble concentrating on things, such as reading the newspaper or watching television: not at all 8. Moving or speaking so slowly that other people could have noticed. Or the opposite - being so fidgety or restless that you have been moving around a lot more than usual: not at all 9. Thoughts that you would be better off or of hurting yourself in some way: not at all Total score: 0 Depression Screening Interpretation: Negative Depression Screening Done: Yes 56973 - PHQ-9 Billing: Yes Source: Developed by Drs. Julio Gamez, Hafsa Powell, Sonny Rios and colleagues, with an educational dayron from [employer]. Thrive Questionnaire Date Thrive assessed: 09/01/24 I am a: Patient What is your living situation today?: I choose not to answer this question Within the past 12 months, did the food you bought not last and you didn't have the money to get more?: I choose not to answer this question Within the past 12 months, did you worry whether your food would run out before you got money to buy more?: Never true Do you have trouble paying for medicines?: No Do you have trouble getting transportation to medical appointments?: No Do you have trouble paying your heating and electricity bill?: No Do you have trouble taking care of your child, family member or friend?: No Do you have trouble with day-to-day activities such as bathing, preparing meals, shopping, managing finances, etc.?: No Are you currently unemployed and looking for a job?: No Are you interested in more education?: No Please select the resources that you would like help with: None Currently or been in a relationship where the following occur: I choose not to answer THRIVE Score: 0 AUDIT C Alcohol Use Questionnaire (AUDIT-C) 1. How often do you have a drink containing alcohol?: 2-3 times a week 2. How many drinks containing alcohol do you have on a typical day when you are drinking?: 1 or 2 3. How often do you have six or more drinks on one occasion?: Never Total Score: 3 SEN-7 AMB Questionnaire SEN-7 Date SEN - 7 assessed: 09/01/24 Feeling nervous, anxious, or on edge: 0 = Not at all Not being able to stop or control worryin = Not at all Worrying too much about different things: 0 = Not at all Trouble relaxin = Not at all Being so restless that it is hard to sit still: 0 = Not at all Becoming easily annoyed or irritable: 0 = Not at all Feeling afraid as if something awful might happen: 0 = Not at all Total SEN-7 score (0-4 normal; 5-9 mild; 10-14 moderate; 15-21 severe): 0 Source: Developed by Drs. Julio Gamez, Hafsa Powell, Sonny Rios and colleagues, with an educational dayron from [employer]. SEN-7 Assessment Billing SEN-7 Assessment Tool: SEN-7 Assessment 60080 Review of Systems Const All systems reviewed & are unremarkable except as noted in HPI and below Eyes Reports no additional complaints ENT Reports no additional complaints Card Reports no additional complaints Resp Reports no additional complaints GI Reports no additional complaints Reports no additional complaints Physical exam (Primary Care) Vital Signs: Last Vital Signs Temp 98.0 F 09/01/24 08:00 Pulse 73 09/01/24 08:00 BP 134/76 09/01/24 08:00 Pulse Ox 97 09/01/24 08:00 Oxygen Delivery Method Room Air 09/01/24 08:00 BMI result Body Mass Index 25.7 Tobacco/Smoking Status: Tobacco use Status Tobacco use date assessed 09/01/24 09/01/24 08:11 Patient Tobacco Use Status Former Tobacco user 09/01/24 08:22 e-Cigarette/Vaping Use Never Used 09/01/24 08:22 PHQ-9: PHQ-9 Score PHQ-9: Total score 0 09/01/24 08:41 Depression Screening Interpretation: Negative Thrive Assessment: Date of Thrive Assessment Date Thrive assessed 09/01/24 09/01/24 08:11 Currently or been in a relationship where the following occur: I choose not to answer Const General: no acute distress HENMT Head: Yes normal to inspection Face and sinus: Yes normal facial exam Eyes General: appearance normal, both eyes and all related structures Neck Neck: Yes no lymphadenopathy and Yes supple Resp Effort & Inspection: normal respiratory effort Auscultation: clear to auscultation bilaterally Cardio Rhythm: regular rhythm Heart sounds: S1 normal heart sound present and S2 normal heart sound present GI Inspection: Yes normal to inspection Palpation (GI): Soft to palpation Percussion: Yes normal to percussion Auscultation: normal bowel sounds Coding Level of Care Code New Pt Level 4 (68035) Diagnoses Nonischemic cardiomyopathy I42.8 Hyperlipidemia E78.5 Hyperglycemia R73.9 Postmenopausal Z78.0 Colon cancer screening Z12.11 Additional Codes SEN-7 Assessment Billing - SEN-7 Assessment Tool: SEN-7 Assessment 07238 ([id number]) PHQ-9 - 65592 - PHQ-9 Billing: Yes ([id number]) Assessment & Plan Assessment & Plan (1) Nonischemic cardiomyopathy: Comment: established with cardiology at [facility] Dr. Quigley, cardiac cath 01/2023 negative, Echo 07/2024 EF 43%, inferior segment akinetic, basal inferior lateral hypokinesis, left atrium severely dilated, mild posterior mitral leaflet prolapse, moderate MR, mild AR Code(s): I42.8 - Other cardiomyopathies Category: Medical Plan: On ROBBIN inhibitor and a beta heladio (2) Hyperlipidemia: Code(s): E78.5 - Hyperlipidemia, unspecified Category: Medical Plan: On statin check lipid profile (3) Hyperglycemia: Code(s): R73.9 - Hyperglycemia, unspecified Category: Medical Plan: Check A1c, ADA diet discussed with the patient (4) Postmenopausal: Comment: DEXA osteopenia T score -2.0 2019 Code(s): Z78.0 - Asymptomatic menopausal state Category: Medical Plan: Continue vitamin-D supplement check the level (5) Colon cancer screening: Comment: Cologuard 2022 Code(s): Z12.11 - Encounter for screening for malignant neoplasm of colon Category: Medical Plan: Up-to-date with colon cancer screening, follow-up in 6 months Orders: Orders Hemoglobin A1c Today E55.9 - Vitamin D deficiency, unspecified, E78.5 - Hyperlipidemia, unspecified, I42.8 - Other cardiomyopathies, R73.9 - Hyperglycemia, unspecified Vitamin D 25-OH Total Today E55.9 - Vitamin D deficiency, unspecified, E78.5 - Hyperlipidemia, unspecified, I42.8 - Other cardiomyopathies, R73.9 - Hyperglycemia, unspecified Comprehensive Stella. Panel Fast Today E55.9 - Vitamin D deficiency, unspecified, E78.5 - Hyperlipidemia, unspecified, I42.8 - Other cardiomyopathies, R73.9 - Hyperglycemia, unspecified Complete Blood Count Auto Diff Today E55.9 - Vitamin D deficiency, unspecified, E78.5 - Hyperlipidemia, unspecified, I42.8 - Other cardiomyopathies, R73.9 - Hyperglycemia, unspecified Lipid Panel Today E55.9 - Vitamin D deficiency, unspecified, E78.5 - Hyperlipidemia, unspecified, I42.8 - Other cardiomyopathies, R73.9 - Hyperglycemia, unspecified
--- OUTSIDE RECORDS SUMMARY | 2024-09-01 08:00 | XMS_ITS | Patient Health Record ---
Author Organization Total [facility] Address [address] [place] [address] Care Team Providers Care Installation Technician Name Role Phone KACY KHAN N.P. Primary [...] Date Coverage End Date [employer] MEDICARE ADVANTAGE [facility] [address] [place] [address] [id number] ESTEPHANIE KEANE Self - patient is the insured Medical (General) History Medical History History ICD Code HYPERTENSION HYPERLIPIDEMIA Hospitalization History Reason Date(Month/Year) CHILD
== END 2024-09-01 08:34 | disposition home or self-care (01) ==
PROVIDERS: Visit Provider Internal Medicine
DX: I42.8 Other cardiomyopathies (principal); E78.5 Hyperlipidemia, unspecified; R73.9 Hyperglycemia, unspecified; Z78.0 Asymptomatic menopausal state; Z12.11 Encounter for screening for malignant neoplasm of colon

== ENCOUNTER 2025-01-02 10:09 | Outpatient (REF) | payer MEDICARE, SELFPAY ==
--- OUTSIDE RECORDS SUMMARY | 2025-01-02 10:49 | XMS_ITS | Patient Health Record ---
Author Organization Total [facility] Address [address] [place] [address] Care Team Providers Care Supervisor Gas Meter Repair Name Role Phone KACY KHAN N.P. Primary [...] 10 MCG 1 tablet Vaginal TWI CE WEEKLY; Duration: 90 days 11/16/2014 Active Plan Of Treatment Pending Test Test Name Order Date Vitamin D, 25-Hydroxy 11/20/2014 MAMMOGRAM, SCREENING 11/16/2014 Insurance Providers Payer Name Payer Address Payer Phone Subscriber Number Group Number Insured Name Patient Relationship to Insured Coverage Start Date Coverage End Date [employer] MEDIC[employer] ADVANTAGE [facility] [address] [place] [address] [id number] ESTEPHANIE KEANE Self - patient is the insured Medical (General) History Medical History History ICD Code HYPERTENSION HYPERLIPIDEMIA Hospitalization History Reason Date(Month/Year) CHILD
== END 2025-01-02 10:10 | disposition home or self-care (01) ==
LOC: HO.MAMMO 10:09
PROVIDERS: Absent Provider Internal Medicine; PCP Internal Medicine; Visit Provider Internal Medicine
DX: Z12.31 Encounter for screening mammogram for malignant neoplasm of breast (principal)
CPT/HCPCS: 77063; 77067

== ENCOUNTER → 2025-01-02 10:30 | Outpatient (BNV) | payer MEDICARE, SELFPAY | PROVIDERS: Absent Provider Internal Medicine; PCP Internal Medicine; Visit Provider Internal Medicine | DX: Z12.31 Encounter for screening mammogram for malignant neoplasm of breast (principal) | CPT/HCPCS: 77063; 77067 ==

== ENCOUNTER 2025-03-12 13:45 | Outpatient (AMB) | payer MEDICARE, SELFPAY ==
[2025-03-12 13:46] VITALS: BP 110/68; PULSE 74; RESP 18; TEMP 36.6; O2SAT 97; BMI 25.3
--- NOTE | 2025-03-12 13:46 | A.OFFPC_ITS ---
Vital Signs 03/12/25 13:46 Height 5 ft 1 in Weight 134 lb BMI 25.3 BP 110/68 Blood Pressure Location Lt brachial Position Sitting Respiration 18 Pulse 74 Pulse Source Pulse Oximeter Temp 97.9 F Temp Source Oral Pulse Oximetry (%) 97 Oxygen Delivery Method Room Air Intake Visit Reasons: Pre op cataract surgery 03/25/25 and 04/08/25 Intake Note: Pt is here today for pre op visit. Pt is having cataract surgery on 03/25/25, 04/08/25. Allergies No Known Allergies Allergy (Verified 03/12/25 13:48) Medication List - Last Reconciled 03/12/25 by Kasandra Hylton MD aspirin (Ecotrin Low Strength) 81 mg PO DAILY atorvastatin 40 mg PO DAILY biotin 2,500 mcg PO DAILY cholecalciferol (vitamin D3) 25 mcg PO DAILY lisinopril 10 mg PO DAILY mecobalamin (vitamin B12) 1,000 mcg PO DAILY metoprolol tartrate 50 mg PO BID sertraline 25 mg PO DAILY Tobacco use date assessed: 03/12/25 Fall risk assessment: No Falls in past year Last assessed Fall Risk: 03/12/25 Dental Screening Dental Screen Date: 03/12/25 Did you have a dental visit in the last 12 months?: Yes Did you have a dental problem in the last 6 months where you did not have access to dental care?: No Was dental information given to patient?: Patient has dentist HPI Pre op cataract surgery 03/25/25 and 04/08/25 HPI Details Pt presents for preop for cataract surgery. Nonischemic cardiomyopathy, HTN and hyperlipid, are stable on meds. [facility] Medical History (Updated 03/12/25 @ 14:16 by Kasandra Hylton MD) Hyperglycemia Hyperlipidemia Nonischemic cardiomyopathy Cardiomyopathy Surgical History S/P cardiac catheterization Family History Father No problems noted. Mother Hypertension Brother Diabetes Social History Household Members Other:: , 2 adult children, daughter in [place], 3 grandchildren, Housing: House Alcohol intake: current Alcohol intake frequency: holidays/special occasions only Patient Tobacco Use Status: Former Tobacco user e-Cigarette/Vaping Use: Never Used service: No Current occupational status: retired Cognitive needs: No Hearing needs: No Vision needs: Yes Questionnaire Thrive Questionnaire Date Thrive assessed: 03/12/25 I am a: Patient What is your living situation today?: I choose not to answer this question Within the past 12 months, did the food you bought not last and you didn't have the money to get more?: I choose not to answer this question Within the past 12 months, did you worry whether your food would run out before you got money to buy more?: Never true Do you have trouble paying for medicines?: No Do you have trouble getting transportation to medical appointments?: No Do you have trouble paying your heating and electricity bill?: No Do you have trouble taking care of your child, family member or friend?: No Do you have trouble with day-to-day activities such as bathing, preparing meals, shopping, managing finances, etc.?: No Are you currently unemployed and looking for a job?: No Are you interested in more education?: No Please select the resources that you would like help with: None Currently or been in a relationship where the following occur: I choose not to answer THRIVE Score: 0 SEN-7 AMB Questionnaire SEN-7 Date SEN - 7 assessed: 09/01/24 Source: Developed by Drs. Julio Gamez, Hafsa Powell, Sonny Rios and colleagues, with an educational dayron from [employer]. Review of Systems Const All systems reviewed & are unremarkable except as noted in HPI and below Eyes Reports no additional complaints ENT Reports no additional complaints Card Reports no additional complaints Resp Reports no additional complaints GI Reports no additional complaints Reports no additional complaints Physical exam (Primary Care) Vital Signs: Last Vital Signs Temp 97.9 F 03/12/25 13:46 Pulse 74 03/12/25 13:46 Resp 18 03/12/25 13:46 BP 110/68 03/12/25 13:46 Pulse Ox 97 03/12/25 13:46 Oxygen Delivery Method Room Air 03/12/25 13:46 BMI result Body Mass Index 25.3 Tobacco/Smoking Status: Tobacco use Status Tobacco use date assessed 03/12/25 03/12/25 13:51 Patient Tobacco Use Status Former Tobacco user 03/12/25 13:51 e-Cigarette/Vaping Use Never Used 03/12/25 13:51 Thrive Assessment: Date of Thrive Assessment Date Thrive assessed 03/12/25 03/12/25 13:51 Currently or been in a relationship where the following occur: I choose not to answer Const General: no acute distress HENMT Head: Yes normal to inspection Mouth: Normal oral and palatal mucosa present Eyes General: appearance normal, both eyes and all related structures Neck Neck: Yes no lymphadenopathy and Yes supple Resp Effort & Inspection: normal respiratory effort Auscultation: clear to auscultation bilaterally Cardio Rhythm: regular rhythm Heart sounds: S1 normal heart sound present and S2 normal heart sound present GI Inspection: Yes normal to inspection Palpation (GI): Soft to palpation Percussion: Yes normal to percussion Auscultation: normal bowel sounds Coding Level of Care Code Est Pt Level 4 (84566) Diagnoses Nonischemic cardiomyopathy I42.8 Hyperlipidemia E78.5 Hyperglycemia R73.9 Cataract H26.9 Assessment & Plan Assessment & Plan (1) Nonischemic cardiomyopathy: Comment: established with cardiology at [facility] Dr. Quigley, cardiac cath 01/2023 negative, Echo 07/2024 EF 43%, inferior segment akinetic, basal inferior lateral hypokinesis, left atrium severely dilated, mild posterior mitral leaflet prolapse, moderate MR, mild AR Code(s): I42.8 - Other cardiomyopathies Category: Medical Plan: Continue current medications follow-up with the Cardiology (2) Hyperlipidemia: Code(s): E78.5 - Hyperlipidemia, unspecified Category: Medical Plan: Medication compliance discussed with the patient. She will restart atorvastatin follow-up in 2 months with a fasting labs before (3) Hyperglycemia: Code(s): R73.9 - Hyperglycemia, unspecified Category: Medical Plan: A1c is 5.3, continue ADA diet (4) Cataract: Code(s): H26.9 - Unspecified cataract Category: Medical Plan: Patient is medically cleared for cataract surgery Orders: Orders Comprehensive [place]. Panel Fast 2 Months E55.9 - Vitamin D deficiency, unspecified, E78.5 - Hyperlipidemia, unspecified, I42.8 - Other cardiomyopathies, R73.9 - Hyperglycemia, unspecified Lipid Panel 2 Months E55.9 - Vitamin D deficiency, unspecified, E78.5 - Hyperlipidemia, unspecified, I42.8 - Other cardiomyopathies, R73.9 - Hyperglycemia, unspecified UA w Microscopic 2 Months E55.9 - Vitamin D deficiency, unspecified, E78.5 - Hyperlipidemia, unspecified, I42.8 - Other cardiomyopathies, R73.9 - Hyperglycemia, unspecified Hemoglobin A1c 2 Months E55.9 - Vitamin D deficiency, unspecified, E78.5 - Hyperlipidemia, unspecified, I42.8 - Other cardiomyopathies, R73.9 - Hyperglycemia, unspecified Complete Blood Count Auto Diff 2 Months E55.9 - Vitamin D deficiency, unspecified, E78.5 - Hyperlipidemia, unspecified, I42.8 - Other cardiomyopathies, R73.9 - Hyperglycemia, unspecified TSH reflex Free T4 2 Months E55.9 - Vitamin D deficiency, unspecified, E78.5 - Hyperlipidemia, unspecified, I42.8 - Other cardiomyopathies, R73.9 - Hyperglycemia, unspecified Vitamin D 25-OH Total 2 Months E55.9 - Vitamin D deficiency, unspecified, E78.5 - Hyperlipidemia, unspecified, I42.8 - Other cardiomyopathies, R73.9 - Hyperglycemia, unspecified
--- OUTSIDE RECORDS SUMMARY | 2025-03-12 15:01 | XMS_ITS | Patient Health Record ---
Author Organization [facility] Address [address] [place] [address] Care Team Providers Care Machine Set Up Name Role Phone KACY KHAN N.P. Primary [...] Date Coverage End Date [employer] MED[employer]AGE [facility] [address] [place] [address] [id number] ESTEPHANIE KEANE Self - patient is the insured Medical (General) History Medical History History ICD Code HYPERTENSION HYPERLIPIDEMIA Hospitalization History Reason Date(Month/Year) CHILD
--- OUTSIDE RECORDS SUMMARY | 2025-03-12 15:01 | XMS_ITS | Patient Health Record ---
Author Organization [facility] Address [address] [place] [phone] Care Team Providers Care Celery Packer Name Role Phone Issa Curry Jr Reason For Referral No Information Plan Of Treatment No Information
--- OUTSIDE RECORDS SUMMARY | 2025-03-12 15:01 | XMS_ITS | Clinical Summary ---
Author Organization [facility] Address [address] [place] [phone] Phone Care Team Providers Care Furniture Designer Name Role Phone Unavailable Primary Care Provider Unavailabl e Allergies No known active allergies Medications cholecalciferol, vitamin D3, 25 mcg (1,000 unit) capsule Take 1 capsule by mouth daily. Active biotin 5 mg Cap Take 5 mg by mouth daily. Active betamethasone dipropionate 0.05 % ointment APPLY TOPICALLY 2 (TWO) TIMES A DAY TO RASH 15 g 2 Active cyanocobalamin, vitamin B-12, 1000 MCG tablet Take 1,000 mcg by mouth daily. Active lisinopril (PRINIVIL,ZESTRIL) 10 MG tabletIndications: Essential hypertension Take 1 tablet (10 mg total) by mouth daily. 90 tablet 3 4 Active sertraline (ZOLOFT) 25 MG tabletIndications: Generalized anxiety disorder TAKE 1 TABLET (25 MG TOTAL) BY MOUTH DAILY. 30 tablet 11 4 Active atorvastatin (LIPITOR) 40 MG tabletIndications: Mixed hyperlipidemia TAKE 1 TABLET BY MOUTH EVERY DAY 90 tablet 5 Active omeprazole (PRILOSEC) 20 MG capsuleIndications :Gastroesophageal reflux disease without esophagitis TAKE 1 CAPSULE BY MOUTH DAILY NEEDED. 90 capsule 3 5 Active metoprolol tartrate (LOPRESSOR) 50 MG tabletIndications: Essential hypertension TAKE 1 TABLET BY MOUTH TWICE A DAY 180 tablet 5 Active Active Problems Problem Noted Date Diagnosed Date Non-ischemic cardiomyopathy 03/22/2023 Assessment & Plan (02/26/2024 2:29 PM EDT): Patient follows with a motor vehicle or caravan salesperson with her last echocardiogram last year. Which showed an EF of 40 to 45%. Severely dilated left atrium. Mild AR and mild to moderate MR. Continue metoprolol 50 mg p.o. twice daily Patient will follow-up with her motor vehicle or caravan salesperson Essential hypertension 10/24/2017 Assessment & Plan (02/26/2024 2:27 PM EDT): Continue Lipitor 10 mg p.o. daily Continue metoprolol 50 mg p.o. twice daily Gastroesophageal reflux disease without esophagi tis 10/24/2017 Assessment & Plan (02/26/2024 2:28 PM EDT): Continue Prilosec 20 mg p.o. daily as needed Mixed hyperlipidemia 10/24/2017 Assessment & Plan (02/26/2024 2:28 PM EDT): Continue Lipitor 40 mg p.o. daily Generalized anxiety disorder 10/24/2017 Assessment & Plan (02/26/2024 2:28 PM EDT): Continue Zoloft 25 mg p.o. 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 Encounters Date Type Department Care Team Description 01/28/2025 Refill [facility] Internal Medicine [address] [place] [address] Raz Merchant PA-C Medication Refill 01/26/2025 Refill [facility] Internal Medicine [address] [place] [address] Raz Merchant PA-C Medication Refill 12/22/2024 Telephone [facility] [address] [place] [address] Katalina Marshall MA Medication Refill from Last 3 Months Immunizations Immunization Administration Dates Next Due COVID-19 (Pre-04/30) Mike Vaccine, [id number], P F 10/13/2020 Influenza High-Dose Trivalent Preservative Free IM 03/25/2014 Influenza trivalent preservative free intraderma l 03/04/2013 Pneumococcal polysaccharide PPSV23 09/14/2015 Tdap 09/08/2008 Family History Medical History Relation Comments Diabetes Brother 1 Heart disease Brother 1 Stroke Brother 2 No Known Problems Daughter Heart disease Father Heart disease Mother Hypertension Mother No Known Problems Sister 1 No Known Problems Sister 2 No Known Problems Son Relation Status Comments Brother 1 Brother 2 Alive Daughter Alive Father Mother Sister 1 Alive Sister 2 Alive Son Alive Social History Tobacco Use Types Packs/Day Years Used Date Smoking Tobacco: Former Cigarettes 0.3 20 0 07/09/1967 - 07/09/1987 Smokeless Tobacco: Never Tobacco Cessation:Counseling Given: Not Answered Comments:quit 30 years ago Alcohol Use Standard Drinks/Week Comments Yes 0 (1 standard drink = 0.6 oz pur e alcohol) 1-2 drinks, 2-4 x month Education Answer Date Recorded Are you interested in more education? Not on fabiano e 11/03/2022 Are you concerned about learning? Not on file 11/03/2022 No 11/03/2022 No 11/03/2022 Digital Access Answer Date Recorded No 11/29/2022 No 11/29/2022 Reliable internet access at home? Not on file 11/29/2022 Device with a working camera? Not on file Intimate Partner Violence Answer Date R ecorded Denied Basic Needs Not on file 02/26/2024 In the past 12 months have y ou been in a relationship with a person who hurts, threatens, or tries to control you? No 02/26/2024 Worried food would run out Not on file 02/25 In the past 12 months have y ou been in a relationship with a person who hurts, threatens, or tries to control you? No 02/26/2024 Comments No Sex and Gender Information Value Date Recorded Sex Assigned at Female 07/20/2022 10:55 AM EST Legal Sex Female 10:04 PM EDT Gender Identity Female 07/20/2022 10:55 AM EST Sexual Orientation Straight 07/20/2022 10 :55 AM EST Last Filed Vital Signs Vital Sign Reading Time Taken Comments Blood Pressure 118/74 02/26/2024 1:17 PM EDT Pulse 75 02/26/2024 1:17 PM EDT Temperature 37 C (98.6 F) 10/19/2022 10:48 AM EDT Respiratory Rate 18 02/26/2024 1:17 PM EDT Oxygen Saturation 98% 02/26/2024 1:17 PM EDT Inhaled Oxygen Concentration - - Weight 60.2 kg (132 lb 12.8 oz) 02/26/2024 1:17 PM EDT Height 153.7 cm (5' 0.5 ) 02/26/2024 1:17 PM EDT Body Mass Index 25.51 02/26/2024 1:17 PM EDT Plan of Treatment Health Maintenance Due Date Last Done Comments SMOKING Hx and SMOKELESS TOBACCO SCREENING 1962 ZOSTER VACCINES (1 of 2) 1999 Adult Td,Tdap Booster 09/08/2018 09/08/2008 RSV VACCINE (1 - 1-dose 75+ series) 02/10/2024 BLOOD PRESSURE 08/28/2024 02/26/2024 CREATININE LEVEL 09/04/2024 09/04/2023, , 03/22/2023, Additional history exists POTASSIUM LEVEL 09/04/2024 09/04/2023, 08/10, 03/22/2023, Additional history exists INFLUENZA VACCINE (#1) 2025 03/25/2014, 2012 DEPRESSION SCREENING 02/25/2025 02/26/2024, 12/24/19 COVID-19 VACCINE (2 - 2024- season) 2025 10/13/2020 PNEUMOCOCCAL VACCINES (50+ years) (2 of 2 - PCV) 12/30/2025 09/14/2015 Postponed from 09/13/2016 (Patient Declines / Guardian Declines) LIPID PANEL 03/22/2028 03/22/2023, 12/07, 04/08/2020, Additional history exists HEPATITIS C SCREENING Completed 04/08/2020 OSTEOPOROSIS SCREENING INITIAL (ONE-TIME) Completed 12/23/2021, 04/28/2020 HEPATITIS A VACCINES Aged Out No long er eligible based on patient's age to complete this topic HIB VACCINES Aged Out No longer eligi ble based on patient's age to complete this topic MENINGOCOCCAL VACCINES (ACWY) Aged Out No longer eligible based on patient's age to complete this topic MENINGOCOCCAL VACCINES (B) Aged Out N o longer eligible based on patient's age to complete this topic Medical Devices Not on file Procedures Procedure Name Priority Date/Time Associated Diagnosis Comments BASIC METABOLIC PANEL Routine 09/04/2023 11:28 AM EST Essential hypertension LIPID PANEL Routine 03/22/2023 12:05 PM EDT Mixed hyperlipidemia BD DXA SCREENING Routine 12/23/2021 11:2 7 AM EDT Osteopenia, unspecified location HEPATITIS C ANTIBODY, QUALITATIVE Routine 04/08/2020 10:36 AM EDT Medicare annual wellness visit, subsequent from Last 3 Months or Most Recently Relevant to Health Maintenance Results * Basic metabolic panel (09/04/2023 11:28 AM EST) Blood us Maddy Lin NP LAB BLOOD ORDERABLES Final Resu lt [address] [phone] * (ABNORMAL) Lipid panel (03/22/2023 12:05 PM EDT) HDL 67 mg/dL [facility] Comment: Interpretation <40 mg/dL: Low HDL cholesterol (major risk factor for CHD) Greater than or equal to 60 mg/dL: High HDL cholesterol ( negative risk factor for CHD) HDL - cholesterol is affected by a number of factors, e.g. smoking, excerise, hormones, sex and age. CHOLESTEROL 211 0 - 240 mg/dL [facility] TRIGLYCERIDES 128 30 - 160 mg/dL [facility] LDL 118 50 - 129 mg/dL [facility] Comment: LDL levels in terms of risk for coronary heart disease: <100 mg/dL: Optimal 100-129 mg/dL: Near or above optimal 130-159 mg/dL: Borderline high 160-189 mg/dL: High >190 mg/dL: Very High CARDIAC RISK RATIO 3.1(L) 3.3 - 4.4 [facility] Blood 03/22/2023 12:0 5 PM EDT 03/22/2023 12:06 PM EDT us Maddy Lin NP LAB BLOOD ORDERABLES Final Resu lt Performing Organization Address City/[facility]/ZIP Co de Phone Number [address] [address] * DXA Screening (04/28/2020) Anatomical Region Laterality Modality Bone Density Bone Density us Maddy Lin NP IMG BD BONE DENSITY DEXA Edited Result - Final * Hepatitis C antibody, qualitative (04/08/2020 10:36 AM EDT) HCV NON-REACTIV E NON-REACTI VE [facility] Blood 04/08/2020 10:3 6 AM EDT 04/08/2020 10:40 AM EDT us Maddy Lin NP LAB BLOOD ORDERABLES Final Resu lt Performing Organization Address City/[facility]/ZIP Co de Phone Number [address] [address] from Last 3 Months or Most Recently Relevant to Health Maintenance Insurance [employer] MED[employer] HMO REPLACEMENT MEDICARE HMO REPLACEMENT MEDICARE HMO REPLACEMENT MEDICARE HMO REPLACEMENT [facility] MEDICARE HMO REPLACEMENT MEDICARE HMO REPLACEMENT [facility] MEDICARE HMO REPLACEMENT [employer] MED[employer] HMO REPLACEMENT [employer] H[employer] REPLACEMENT Additional Source Comments The information contained in this document represents components of the legal health record. It is not the complete legal health record.[facility]
== END 2025-03-12 14:16 | disposition home or self-care (01) ==
LOC: HO.HMCC 13:46
PROVIDERS: PCP Internal Medicine; Visit Provider Internal Medicine
DX: I42.8 Other cardiomyopathies (principal); E78.5 Hyperlipidemia, unspecified; R73.9 Hyperglycemia, unspecified; H26.9 Unspecified cataract

== ENCOUNTER → 2025-03-12 13:45 | Outpatient (BNVA) | payer MEDICARE, SELFPAY | PROVIDERS: PCP Internal Medicine; Visit Provider Internal Medicine | DX: I42.8 Other cardiomyopathies (principal); E78.5 Hyperlipidemia, unspecified; R73.9 Hyperglycemia, unspecified; H26.9 Unspecified cataract; E55.9 Vitamin D deficiency, unspecified | CPT/HCPCS: 99212 ==

== ENCOUNTER 2025-05-05 10:57 | Outpatient (REF) | payer MEDICARE, SELFPAY ==
[2025-05-05 13:10] LABS: Appearance Urine Clear; Glucose Urine UA Negative (Negative); PH 6.5 (5.0-9.0); Specific Gravity - Urine 1.015 (1.005-1.025); UMIC TRIGGER UA YES
[2025-05-05 13:34] LABS: MANUAL DIFF FLAG NO
[2025-05-05 13:41] LABS: Hematocrit 38.8 % (37.0-47.0); Hemoglobin 13.1 g/dl (12.0-16.0); Imm Gran Abs Auto 0.02 X10*3/uL (0.00-0.03); Imm Gran Pct Auto 0.3 % (0.0-0.4); Lymphocytes Absolute Auto 2.3 X10*3/uL (1.2-4.9); Mean Corpuscular HGB Conc 33.8 g/dl (31.0-35.0); Mean Corpuscular Hemoglobin 33.1 pg (27.0-33.0); Mean Corpuscular Volume 98.0 fL (80.0-98.0); NRBC Abs Auto 0.000 X10*3/uL (0.0-0.012); NRBC Pct Auto 0.0 /100WBC (0.0-0.2); Platelet Count 200 X10*3/uL (160-400); Red Blood Count 3.96 X10*6/uL (4.20-5.50); White Blood Count 6.8 X10*3/uL (4.8-10.8)
--- OUTSIDE RECORDS SUMMARY | 2025-05-05 14:02 | XMS_ITS | Patient Health Record ---
Author Organization [facility] Address [address] [place] [phone] Care Team Providers Care Boot Repairer Name Role Phone Issa Curry Jr Reason For Referral No Information Plan Of Treatment No Information
--- OUTSIDE RECORDS SUMMARY | 2025-05-05 14:02 | XMS_ITS | Patient Health Record ---
Author Organization [facility] Address [address] [place] [address] Care Team Providers Care Blown Film Extrusion Operator Name Role Phone KACY KHAN N.P. Primary [...] Date Coverage End Date [employer] MEDIC[employer] ADVANTAGE [facility] [address] [place] [address] [id number] ESTEPHANIE KEANE Self - patient is the insured Medical (General) History Medical History History ICD Code HYPERTENSION HYPERLIPIDEMIA Hospitalization History Reason Date(Month/Year) CHILD
--- OUTSIDE RECORDS SUMMARY | 2025-05-05 14:02 | XMS_ITS | Clinical Summary ---
Author Organization [facility] Address [address] [place] [phone] Phone Care Team Providers Care Brim Buster Name Role Phone Unavailable Primary Care Provider [...] 2:29 PM EDT): Patient follows with a high rigger with her last echocardiogram last year. Which showed an EF of 40 to 45%. Severely dilated left atrium. Mild AR and mild to moderate MR. Continue metoprolol 50 mg p.o. twice daily Patient will follow-up with her high rigger Essential hypertension 10/24/2017 Assessment & Plan (02/26/2024 [...] Encounters Date Type Department Care Team Description 04/11/2025 Refill [facility] Internal Medicine [address] [place] [address] Raz Merchant PA-C Medication Refill from Last 3 Months Immunizations [...] 03/25/2014, 2012 DEPRESSION SCREENING 02/25/2025 02/26/2024, 12/24/19 22 COVID-19 VACCINE (2 - 2024- season) 2025 [...] NP LAB BLOOD ORDERABLES Final Resu lt [address] [address] * (ABNORMAL) Lipid panel (03/22/2023 12:05 PM EDT) HDL 67 mg/dL [facility] Comment: Interpretation <40 mg/dL: Low HDL cholesterol (major risk factor for CHD) Greater than or equal to 60 mg/dL: High HDL cholesterol ( negative risk factor for CHD) HDL - cholesterol is affected by a number of factors, e.g. smoking, excerise, hormones, sex and age. CHOLESTEROL 211 0 - 240 mg/dL [facility] TRIGLYCERIDES 128 30 - 160 mg/dL [facility] LDL 118 50 - 129 mg/dL [facility] Comment: LDL levels in terms of risk for coronary heart disease: <100 mg/dL: Optimal 100-129 mg/dL: Near or above optimal 130-159 mg/dL: Borderline high 160-189 mg/dL: High >190 mg/dL: Very High CARDIAC RISK RATIO 3.1(L) 3.3 - 4.4 [facility] Blood 03/22/2023 12:0 5 PM EDT 03/22/2023 12:06 PM EDT Maddy Lin NP LAB BLOOD ORDERABLES Final Resu lt Performing Organization Address City/[facility]/ZIP Co de Phone Number [address] [address] * DXA Screening (04/28/2020) Anatomical Region Laterality Modality Bone Density Bone Density us Maddy Lin NP IMG BD BONE DENSITY DEXA Edited Result - Final * Hepatitis C antibody, qualitative (04/08/2020 10:36 AM EDT) HCV NON-REACTIV E NON-REACTI VE [facility] Blood 04/08/2020 10:3 6 AM EDT 04/08/2020 10:40 AM EDT Maddy Lin NP LAB BLOOD ORDERABLES Final Resu lt Performing Organization Address City/[facility]/ZIP Co de Phone Number [address] [address] from Last 3 Months or Most Recently Relevant to Health Maintenance Insurance [facility] MEDICARE HMO REPLACEMENT [address] [place] [address] MEDICARE HMO REPLACEMENT MEDICARE HMO REPLACEMENT MEDICARE HMO REPLACEMENT MEDICARE HMO REPLACEMENT [employer] MEDICARE HMO REPLACEMENT Additional Source Comments The information contained in this document represents components of the legal health record. It is not the complete legal health record.[facility]
[2025-05-05 14:13] LABS: Alanine Aminotransferase 22 U/L (0-31); Albumin Level 4.4 g/dL (3.5-5.0); Alkaline Phosphatase 64 U/L (39-117); Anion Gap 12 (12-20); Aspartate Amino Transferase 24 U/L (5-31); Blood Urea Nitrogen 12 mg/dL (9-16); Calcium 9.3 mg/dL (8.4-10.2); Carbon Dioxide 28 mmol/L (22-29); Chloride 107 mmol/L (96-108); Cholesterol 196 mg/dL (<200); Estimated Glomerular Filt Rate > 60; HDL Cholesterol 62 mg/dL (>40); Potassium 4.6 mmol/L (3.3-5.1); Sodium 142 mmol/L (135-145); Total Protein 7.0 g/dL (6.5-8.0); Triglycerides 174 mg/dL (<150)
== END 2025-05-05 10:58 | disposition home or self-care (01) ==
LOC: HO.HMGCLDS 10:57
PROVIDERS: PCP Internal Medicine; Visit Provider Internal Medicine
DX: I42.8 Other cardiomyopathies (principal); E55.9 Vitamin D deficiency, unspecified; E78.5 Hyperlipidemia, unspecified; R73.9 Hyperglycemia, unspecified
CPT/HCPCS: 36415; 80053; 80061; 81001; 82306; 83036; 84443; 85025

== ENCOUNTER 2025-05-07 11:03 | Outpatient (AMB) | payer MEDICARE, SELFPAY ==
--- NOTE | 2025-05-07 11:15 | A.OFFPC_ITS ---
Vital Signs 05/07/25 11:16 Height 5 ft 1 in Weight 141 lb BMI 26.6 BP 152/70 H Blood Pressure Location Rt brachial Position Sitting Respiration 16 Pulse 82 Pulse Source Pulse Oximeter Temp 98.1 F Temp Source Oral Pulse Oximetry (%) 96 Oxygen Delivery Method Room Air Intake Visit Reasons: Follow up Intake Note: Pt is here today for her f/u Allergies No Known Allergies Allergy (Verified 05/07/25 11:17) Medication List - Last Reconciled 05/07/25 by Kasandra Hylton MD aspirin (Ecotrin Low Strength) 81 mg PO DAILY atorvastatin 40 mg PO DAILY biotin 2,500 mcg PO DAILY cholecalciferol (vitamin D3) 25 mcg PO DAILY lisinopril 10 mg PO DAILY mecobalamin (vitamin B12) 1,000 mcg PO DAILY metoprolol tartrate 50 mg PO BID sertraline 25 mg PO DAILY Tobacco use date assessed: 05/07/25 Fall risk assessment: No Falls in past year Last assessed Fall Risk: 05/07/25 Dental Screening Dental Screen Date: 03/12/25 HPI Follow up HPI Details Patient presents for the follow-up on hypertension nonischemic cardiomyopathy established with Cardiology, hyperlipidemia chronic anxiety stable on current medications. [facility] Medical History Hyperglycemia Hyperlipidemia Nonischemic cardiomyopathy Cardiomyopathy Surgical History S/P cardiac catheterization Family History Father No problems noted. Mother Hypertension Brother Diabetes Social History Household Members Other:: , 2 adult children, daughter in [place], 3 grandchildren, Housing: House Alcohol intake: current Alcohol intake frequency: holidays/special occasions only Patient Tobacco Use Status: Former Tobacco user e-Cigarette/Vaping Use: Never Used service: No Current occupational status: retired Cognitive needs: No Hearing needs: No Vision needs: Yes Questionnaire PHQ-9 Over the last 2 weeks, how often have you been bothered by any of the following problems? 1. Little interest or pleasure in doing things: not at all 2. Feeling down, depressed, or hopeless: not at all 3. Trouble falling or staying asleep, or sleeping too much: not at all 4. Feeling tired or having little energy: not at all 5. Poor appetite or overeating: not at all 6. Feeling bad about yourself - or that you are a failure or have let yourself or your family down: not at all 7. Trouble concentrating on things, such as reading the newspaper or watching television: not at all 8. Moving or speaking so slowly that other people could have noticed. Or the opposite - being so fidgety or restless that you have been moving around a lot more than usual: not at all 9. Thoughts that you would be better off or of hurting yourself in some way: not at all Total score: 0 Depression Screening Interpretation: Negative Depression Screening Done: Yes Source: Developed by Drs. Julio Gamez, Hafsa Powell, Sonny Rios and colleagues, with an educational dayron from [facility]. Thrive Questionnaire Date Thrive assessed: 08/26/24 I am a: Patient What is your living situation today?: I choose not to answer this question Within the past 12 months, did the food you bought not last and you didn't have the money to get more?: I choose not to answer this question Within the past 12 months, did you worry whether your food would run out before you got money to buy more?: Never true Do you have trouble paying for medicines?: No Do you have trouble getting transportation to medical appointments?: No Do you have trouble paying your heating and electricity bill?: No Do you have trouble taking care of your child, family member or friend?: No Do you have trouble with day-to-day activities such as bathing, preparing meals, shopping, managing finances, etc.?: No Are you currently unemployed and looking for a job?: No Are you interested in more education?: No Please select the resources that you would like help with: None Currently or been in a relationship where the following occur: I choose not to answer THRIVE Score: 0 SEN-7 AMB Questionnaire SEN-7 Date SEN - 7 assessed: 09/01/24 Feeling nervous, anxious, or on edge: 0 = Not at all Source: Developed by Drs. Julio Gamez, HafsaSonny Walter and colleagues, with an educational dayron from [facility]. Review of Systems Const All systems reviewed & are unremarkable except as noted in HPI and below Eyes Reports no additional complaints ENT Reports no additional complaints Card Reports no additional complaints Resp Reports no additional complaints GI Reports no additional complaints Reports no additional complaints Physical exam (Primary Care) Vital Signs: Last Vital Signs Temp 98.1 F 05/07/25 11:16 Pulse 82 05/07/25 11:16 Resp 16 05/07/25 11:16 BP 152/70 H 05/07/25 11:16 Pulse Ox 96 05/07/25 11:16 Oxygen Delivery Method Room Air 05/07/25 11:16 BMI result Body Mass Index 26.6 Tobacco/Smoking Status: Tobacco use Status Tobacco use date assessed 05/07/25 05/07/25 11:19 Patient Tobacco Use Status Former Tobacco user 05/07/25 11:19 e-Cigarette/Vaping Use Never Used 05/07/25 11:19 Depression Screening Interpretation: Negative Thrive Assessment: Date of Thrive Assessment Date Thrive assessed 08/26/24 05/07/25 11:19 Currently or been in a relationship where the following occur: I choose not to answer Const General: no acute distress HENMT Head: Yes normal to inspection Face and sinus: Yes normal facial exam Mouth: Normal oral and palatal mucosa present Eyes General: appearance normal, both eyes and all related structures Neck Neck: Yes no lymphadenopathy and Yes supple Resp Effort & Inspection: normal respiratory effort Auscultation: clear to auscultation bilaterally Cardio Rhythm: regular rhythm Heart sounds: S1 normal heart sound present and S2 normal heart sound present GI Inspection: Yes normal to inspection Palpation (GI): Soft to palpation Percussion: Yes normal to percussion Auscultation: normal bowel sounds Coding Level of Care Code Est Pt Level 4 (44394) Diagnoses Postmenopausal Z78.0 Nonischemic cardiomyopathy I42.8 Hypertension I10 Hyperlipidemia E78.5 Assessment & Plan Assessment & Plan (1) Postmenopausal: Comment: DEXA osteopenia T score -2.0 2019 Code(s): Z78.0 - Asymptomatic menopausal state Category: Medical Plan: Check DEXA, continue vitamin-D supplement (2) Nonischemic cardiomyopathy: Comment: [place] with [place] [facility] [place], cardiac cath 01/2023 negative, Echo 07/2024 EF 43%, inferior segment akinetic, basal inferior lateral hypokinesis, left atrium severely dilated, mild posterior mitral leaflet prolapse, moderate MR, mild AR Code(s): I42.8 - Other cardiomyopathies Category: Medical Plan: Continue current medications follow-up with cardiology (3) Hypertension: Code(s): I10 - Essential (primary) hypertension Category: Medical Plan: Blood pressure is elevated today. Patient has not been taking metoprolol tartrate twice a day. Metoprolol by will be switched to metoprolol succinate ER 100 mg daily and patient will follow-up in 1 month. She will continue lisinopr il (4) Hyperlipidemia: Code(s): E78.5 - Hyperlipidemia, unspecified Category: Medical Plan: Continue atorvastatin Orders: Orders XR DEXA axial skeleton Today Z78.0 - Asymptomatic menopausal state Medications: New metoprolol succinate ER 100 mg PO DAILY 90 tabs 3RF Discontinued metoprolol tartrate Discontinued Reason: Doctor's Order 50 mg PO BID 180 tabs 3RF
[2025-05-07 11:16] VITALS: BP 152/70; PULSE 82; RESP 16; TEMP 36.7; O2SAT 96; BMI 26.6
--- OUTSIDE RECORDS SUMMARY | 2025-05-07 13:49 | XMS_ITS | Patient Health Record ---
Author Organization [facility] Address [address] [place] [address] Care Team Providers Care Drive Worker Name Role Phone KACY KHAN N.P. Primary [...] Date Coverage End Date [employer] MEDIC[employer] ADVANTAGE [facility] [address] [place] [address] [id number] ESTEPHANIE KEANE Self - patient is the insured Medical (General) History Medical History History ICD Code HYPERTENSION HYPERLIPIDEMIA Hospitalization History Reason Date(Month/Year) CHILD
--- OUTSIDE RECORDS SUMMARY | 2025-05-07 13:49 | XMS_ITS | Clinical Summary ---
Author Organization [facility] Address [address] [place] [address] Phone Care Team Providers Care Interface Developer Name Role Phone Unavailable Primary Care Provider [...] 2:29 PM EDT): Patient follows with a coach professional athletes with her last echocardiogram last year. Which showed an EF of 40 to 45%. Severely dilated left atrium. Mild AR and mild to moderate MR. Continue metoprolol 50 mg p.o. twice daily Patient will follow-up with her coach professional athletes Essential hypertension 10/24/2017 Assessment & Plan (02/26/2024 [...] Encounters Date Type Department Care Team Description 05/06/2025 Refill [facility] Internal Medicine [address] [facility] [place] [address] Raz Merchant PA-C Medication Refill 04/11/2025 Refill [facility] Internal Medicine [address] [facility] [place] [address] Raz Merchant PA-C Medication Refill from Last [...] 10:48 AM EDT Respiratory Rate 18 02/26/2024 1:1 7 PM EDT Oxygen Saturation 98% 02/26/2024 1:17 [...] NP LAB BLOOD ORDERABLES Final Resu lt [facility] [address] [place], [place] [id number] * (ABNORMAL) Lipid panel (03/22/2023 12:05 PM EDT) HDL 67 mg/dL [facility] Comment: Interpretation <40 mg/dL: Low HDL cholesterol (major risk factor for CHD) Greater than or equal to 60 mg/dL: High HDL cholesterol ( negative risk factor for CHD) HDL - cholesterol is affected by a number of factors, e.g. smoking, excerise, hormones, sex and age. CHOLESTEROL 211 0 - 240 mg/dL [facility] TRIGLYCERIDES 128 30 - 160 mg/dL [facility] LDL 118 50 - 129 mg/dL [facility] Comment: LDL levels in terms of risk for coronary heart disease: <100 mg/dL: Optimal 100-129 mg/dL: Near or above optimal 130-159 mg/dL: Borderline high 160-189 mg/dL: High >190 mg/dL: Very High CARDIAC RISK RATIO 3.1(L) 3.3 - 4.4 C [facility] Blood 03/22/2023 12:0 5 PM EDT 03/22/2023 12:06 PM EDT us Maddy Lin NP LAB BLOOD ORDERABLES Final Resu lt Performing Organization Address [facility] Co de Phone Number [address] [address] * DXA Screening (04/28/2020) Anatomical Region Laterality Modality Bone Density Bone Density Maddy Lin NP IMG BD BONE DENSITY DEXA Edited Result - Final * Hepatitis C antibody, qualitative (04/08/2020 10:36 AM EDT) HCV NON-REACTIV E NON-REACTI VE [facility] Blood 04/08/2020 10:3 6 AM EDT 04/08/2020 10:40 AM EDT Maddy Lin NP LAB BLOOD ORDERABLES Final Resu lt Performing Organization Address [facility] Co de Phone Number [address] [address] from Last 3 Months or Most Recently Relevant to Health Maintenance Insurance [employer] HMO REPLACEMENT [employer] HMO REPLACEMENT [employer] MED[employer] HMO REPLACEMENT MEDICARE HMO REPLACEMENT MEDICARE HMO REPLACEMENT MEDICARE HMO REPLACEMENT MEDICARE HMO REPLACEMENT [employer] MED[employer] HMO REPLACEMENT Additional Source Comments The information contained in this document represents components of the legal health record. It is not the complete legal health record.[facility]
--- OUTSIDE RECORDS SUMMARY | 2025-05-07 13:49 | XMS_ITS | Encounter Summary ---
Author Organization [facility] Address [address] [place] [address] [place] [address] Phone Care Team Providers Care Can Striper Name Role Phone Unavailable Primary Care Provider Unavailabl e Reason for Visit * Reason Comments Medication Refill Encounter Details Date Type Department Care Team (Late st Contact Info) Description 05/06/2025 Refill [facility] Medical [facility] Internal Medicine [address] [place] [address] Raz Merchant PA-C [address] [place] [address] [email or web address] Medication Refill Social History Tobacco Use Types Packs/Day Years Used Date Smoking Tobacco: Former Cigarettes 0.3 20 0 07/09/1967 - 07/09/1987 Smokeless Tobacco: Never Comments:quit 30 years ago Alcohol Use Standard [...] Orientation Straight 07/20/2022 10 :55 AM EST documented as of this encounter Plan of Treatment Not on file documented as of this encounter Visit Diagnoses Diagnosis Essential hypertension Unspecified essential hypertension documented in this encounter Additional Health Concerns Assessment Noted Time PHQ-9 Depression Total Score: 3 12/24/19 22 10:37 AM EDT PHQ-2 Depression Total Score: 0 02/26/20 24 1:12 PM EDT documented as of this encounter Additional Source Comments The information contained in this document represents components of the legal health record. It is not the complete legal health record.[facility]
--- OUTSIDE RECORDS SUMMARY | 2025-05-07 13:49 | XMS_ITS | Patient Health Record ---
Author Organization [facility] Address [address] [place] [phone] Care Team Providers Care Voice Studies Director Name Role Phone Issa Curry Jr Reason For Referral No Information Plan Of Treatment No Information
== END 2025-05-07 12:19 | disposition home or self-care (01) ==
LOC: HO.HMCC 11:03
PROVIDERS: PCP Internal Medicine; Visit Provider Internal Medicine
DX: Z78.0 Asymptomatic menopausal state (principal); I42.8 Other cardiomyopathies; I10 Essential (primary) hypertension; E78.5 Hyperlipidemia, unspecified

== ENCOUNTER → 2025-05-07 11:03 | Outpatient (BNVA) | payer MEDICARE, SELFPAY | PROVIDERS: PCP Internal Medicine; Visit Provider Internal Medicine | DX: I10 Essential (primary) hypertension (principal); I42.8 Other cardiomyopathies; E78.5 Hyperlipidemia, unspecified; Z78.0 Asymptomatic menopausal state; Z79.899 Other long term (current) drug therapy | CPT/HCPCS: 96127; 99212 ==

== ENCOUNTER 2025-07-06 12:09 | Outpatient (AMB) | payer MEDICARE, SELFPAY ==
[2025-07-06 12:11] VITALS: BP 126/74; PULSE 73; RESP 16; TEMP 36.7; O2SAT 97; BMI 26.1
--- NOTE | 2025-07-06 12:11 | MHC.PC.OV ---
Vital Signs 07/06/25 12:11 Height 5 ft 1 in Weight 138 lb BMI 26.1 BP 126/74 Blood Pressure Location Lt brachial Position Sitting Respiration 16 Pulse 73 Pulse Source Pulse Oximeter Temp 98.1 F Temp Source Oral Pulse Oximetry (%) 97 Oxygen Delivery Method Room Air Intake Visit Reasons: 1 mo follow up Intake Note: Pt is here today for 1 month follow up visit. Allergies No Known Allergies Allergy (Verified 07/06/25 12:19) Tobacco use date assessed: 05/07/25 Dental Screening Dental Screen Date: 03/12/25 HPI 1 mo follow up HPI Details Patient presents for the follow-up on hypertension and hyperlipidemia, controlled on current medications. [facility] Medical History Hyperglycemia Hyperlipidemia Nonischemic cardiomyopathy Cardiomyopathy Surgical History S/P cardiac catheterization Family History Father No problems noted. Mother Hypertension Brother Diabetes Social History Household Members Other:: , 2 adult children, daughter in [place], 3 grandchildren, Housing: House Alcohol intake: current Alcohol intake frequency: holidays/special occasions only Patient Tobacco Use Status: Former Tobacco user e-Cigarette/Vaping Use: Never Used service: No Current occupational status: retired Cognitive needs: No Hearing needs: No Vision needs: Yes Questionnaire Thrive Questionnaire Date Thrive assessed: 08/26/24 I am a: Patient What is your living situation today?: I choose not to answer this question Within the past 12 months, did the food you bought not last and you didn't have the money to get more?: I choose not to answer this question Within the past 12 months, did you worry whether your food would run out before you got money to buy more?: Never true Do you have trouble paying for medicines?: No Do you have trouble getting transportation to medical appointments?: No Do you have trouble paying your heating and electricity bill?: No Do you have trouble taking care of your child, family member or friend?: No Do you have trouble with day-to-day activities such as bathing, preparing meals, shopping, managing finances, etc.?: No Are you currently unemployed and looking for a job?: No Are you interested in more education?: No Currently or been in a relationship where the following occur: I choose not to answer THRIVE Score: 0 SEN-7 AMB Questionnaire SEN-7 Date ESN - 7 assessed: 09/01/24 Source: Developed by Drs. Julio Gamez, Hafsa Powell, Sonny Rios and colleagues, with an educational dayron from [employer]. Review of Systems Const All systems reviewed & are unremarkable except as noted in HPI and below Eyes Reports no additional complaints ENT Reports no additional complaints Card Reports no additional complaints Resp Reports no additional complaints GI Reports no additional complaints Reports no additional complaints Physical exam (Primary Care) Vital Signs: Last Vital Signs Temp 98.1 F 07/06/25 12:11 Pulse 73 07/06/25 12:11 Resp 16 07/06/25 12:11 BP 126/74 07/06/25 12:11 Pulse Ox 97 07/06/25 12:11 Oxygen Delivery Method Room Air 07/06/25 12:11 BMI result Body Mass Index 26.1 Tobacco/Smoking Status: Tobacco use Status Tobacco use date assessed 05/07/25 07/06/25 12:11 Patient Tobacco Use Status Former Tobacco user 07/06/25 12:11 e-Cigarette/Vaping Use Never Used 07/06/25 12:11 Thrive Assessment: Date of Thrive Assessment Date Thrive assessed 08/26/24 07/06/25 12:11 Currently or been in a relationship where the following occur: I choose not to answer Const General: no acute distress HENMT Ears: TM's normal bilaterally Eyes General: appearance normal, both eyes and all related structures Neck Neck: Yes supple Resp Effort & Inspection: normal respiratory effort Auscultation: clear to auscultation bilaterally Cardio Rhythm: regular rhythm Heart sounds: S1 normal heart sound present and S2 normal heart sound present Coding Level of Care Code Est Pt Level 4 (57440) Diagnoses Nonischemic cardiomyopathy I42.8 Hypertension I10 Hyperlipidemia E78.5 Assessment & Plan Assessment & Plan (1) Nonischemic cardiomyopathy: Comment: established with cardiology at [facility] [place]. Qu[place]ley, cardiac cath 01/2023 negative, Echo 07/2024 EF 43%, inferior segment akinetic, basal inferior lateral hypokinesis, left atrium severely dilated, mild posterior mitral leaflet prolapse, moderate MR, mild AR Code(s): I42.8 - Other cardiomyopathies Category: Medical Plan: Continue current medications follow-up with Cardiology (2) Hypertension: Code(s): I10 - Essential (primary) hypertension Category: Medical Plan: Continue current medications (3) Hyperlipidemia: Code(s): E78.5 - Hyperlipidemia, unspecified Category: Medical Plan: Continue statin
--- OUTSIDE RECORDS SUMMARY | 2025-07-06 14:14 | XMS_ITS | Patient Health Record ---
Author Organization [facility] Address [address] [place] [phone] Care Team Providers Care Fly Finisher Name Role Phone Issa Curry Jr [phone] Reason For Referral No Information Plan Of Treatment No Information
--- OUTSIDE RECORDS SUMMARY | 2025-07-06 14:14 | XMS_ITS | Patient Health Record ---
Author Organization [facility] Address [address] [place] [address] Care Team Providers Care Rotary Cutter Feeder Name Role Phone KACY KHAN N.P. Primary [...] Date Coverage End Date [employer] MEDICARE ADVANTAGE [facility] [address] [place] [id number] ESTEPHANIE KEANE Self - patient is the insured Medical (General) History Medical History History ICD Code HYPERTENSION HYPERLIPIDEMIA Hospitalization History Reason Date(Month/Year) CHILD
--- OUTSIDE RECORDS SUMMARY | 2025-07-06 14:14 | XMS_ITS | Clinical Summary ---
Author Organization [facility] Address [address] [place] [phone] Phone Care Team Providers Care Fish Hatchery Inspector Name Role Phone Unavailable Primary Care Provider [...] 2:29 PM EDT): Patient follows with a assistant farm operations manager with her last echocardiogram last year. Which showed an EF of 40 to 45%. Severely dilated left atrium. Mild AR and mild to moderate MR. Continue metoprolol 50 mg p.o. twice daily Patient will follow-up with her assistant farm operations manager Essential hypertension 10/24/2017 Assessment & Plan (02/26/2024 [...] Type Department Care Team Description 05/06/2025 Refill [facility] [address] [facility] [place] [address] Raz Merchant PA-C Medication Refill 04/11/2025 Refill [facility] Primary Care [facility] [address] [facility] [place] [address] Raz Merchant PA-C Medication Refill from Last [...] Date/Time Associated Diagnosis Comments BASIC METABOLIC PANEL (BMP) Routine 09/04/2023 11:28 AM EST Essential hypertension [...] Blood us Maddy Lin NP LAB BLOOD BKR ORDERABLES Final Result [address] [address] * (ABNORMAL) Lipid panel (03/22/2023 12:05 PM EDT) HDL 67 mg/dL [facility] Comment: Interpretation <40 mg/dL: Low HDL cholesterol (major risk factor for CHD) Greater than or equal to 60 mg/dL: High HDL cholesterol ( negative risk factor for CHD) HDL - cholesterol is affected by a number of factors, e.g. smoking, excerise, hormones, sex and age. CHOLESTEROL 211 0 - 240 mg/dL [facility] TRIGLYCERIDES 128 30 - 160 mg/dL [facility] LDL 118 50 - 129 mg/dL [facility] Comment: LDL levels in terms of risk for coronary heart disease: <100 mg/dL: Optimal 100-129 mg/dL: Near or above optimal 130-159 mg/dL: Borderline high 160-189 mg/dL: High >190 mg/dL: Very High CARDIAC RISK RATIO 3.1(L) 3.3 - 4.4 C [facility] Blood 03/22/2023 12:0 5 PM EDT 03/22/2023 12:06 PM EDT us Maddy Lin NP LAB BLOOD BKR ORDERABLES Final Result Performing Organization Address City/[facility] Co de Phone Number [address] [address] * DXA Screening (04/28/2020) Anatomical Region Laterality Modality Bone Density Bone Density us Maddy Lin NP IMG BD BONE DENSITY DEXA Edited Result - Final * Hepatitis C antibody, qualitative (04/08/2020 10:36 AM EDT) HCV NON-REACTIV E NON-REACTI VE [facility] Blood 04/08/2020 10:3 6 AM EDT 04/08/2020 10:40 AM EDT Maddy Lin NP LAB BLOOD BKR ORDERABLES Final Result Performing Organization Address [facility] Co de Phone Number [address] [address] from Last 3 Months or Most Recently Relevant to Health Maintenance Insurance [facility] MEDICARE HMO REPLACEMENT [employer] MED[employer] HMO REPLACEMENT MEDICARE HMO REPLACEMENT [employer] MEDICARE HMO REPLACEMENT MEDICARE [place] [address] [place] [address] MEDICARE HMO REPLACEMENT Additional Source Comments The information contained in this document represents components of the legal health record. It is not the complete legal health record.[facility]
--- OUTSIDE RECORDS SUMMARY | 2025-07-06 14:14 | XMS_ITS | Encounter Summary ---
Author Organization [facility] Address [address] [place] [address] Phone Care Team Providers Care Aircraft General Repair Mechanic Name Role Phone Unavailable Primary Care Provider Unavailabl e Reason for Visit * Reason Comments Medication Refill Encounter Details Date Type Department Care Team ([facility] st Contact Info) Description 05/06/2025 Refill [facility] Clinic [address] [place] [address] Raz Merchant PA-C [address] [place] [address] [email or web address] Medication Refill Social History Tobacco Use [...] It is not the complete legal health record.[facility]
== END 2025-07-06 12:43 | disposition home or self-care (01) ==
LOC: HO.HMCC 12:10
PROVIDERS: PCP Internal Medicine; Visit Provider Internal Medicine
DX: I42.8 Other cardiomyopathies (principal); I10 Essential (primary) hypertension; E78.5 Hyperlipidemia, unspecified

== ENCOUNTER → 2025-07-06 12:09 | Outpatient (BNVA) | payer MEDICARE, SELFPAY | PROVIDERS: PCP Internal Medicine; Visit Provider Internal Medicine | DX: I42.8 Other cardiomyopathies (principal); I10 Essential (primary) hypertension; E78.5 Hyperlipidemia, unspecified | CPT/HCPCS: 99212 ==